=== PATIENT | male | born 1955 | race American Indian/Alaskan Native ===

== ENCOUNTER 2016-12-28 15:39 | Inpatient (IN) | payer MEDICARE ==
[2016-12-28] MEDS ORDERED: TORADOL IM ONE (17:10)
--- NOTE | 2016-12-28 17:10 | Emergency Department Report ---
- General Chief complaint: Skin/Abscess/Foreign Body Stated complaint: ABSCESS UPPER AND LOWER BACK Time Seen by Provider: 12/28/16 17:03 Source: patient Mode of arrival: Ambulatory Limitations: No Limitations - History of Present Illness Initial comments: Patient with Diabetes and HTN presents today with abscess to his right upper back 3 weeks. Note: patient seen here on 12/06/16 by another provider for same abscess. Positive for drainage. Reports drainage and pain radiating to his arm and left shoulder. Denies numbness, weakness, paresthesias, fever, chills, nausea, vomiting, chest pain, shortness of breath, abdominal pain. Patient reports hx of multiple abscesses, 1 to back for which he had to be admitted for many years ago. - Related Data Home Medications Medication Instructions Recorded Confirmed Last Taken ALBUTEROL Inhaler [ProAir HFA 2 puff IH QID PRN 07/12/15 07/14/15 07/14/15 Inhaler] AtorvaSTATin [Lipitor] 1 tab PO DAILY 07/12/15 07/14/15 10/24/16 Citalopram [Celexa] 20 mg PO QDAY 07/12/15 07/14/15 10/24/16 Fluticasone/Salmeterol [Advair 1 puff IH BID 07/12/15 07/14/15 07/13/15 Diskus 100-50 mcg] Gabapentin [Neurontin] 300 mg PO BID 07/12/15 10/25/16 10/24/16 Insulin Glargine,Hum.rec.anlog 40 units SQ QHS 07/12/15 07/14/15 10/24/16 [Lantus Solostar] Lisinopril [Zestril TAB] 20 mg PO QDAY 07/12/15 07/14/15 10/24/16 Piroxicam 1 cap PO DAILY 07/12/15 10/25/16 07/13/15 Zolpidem [Ambien] 10 mg PO QHS 07/12/15 07/14/15 10/24/16 glipiZIDE [Glucotrol] 5 mg PO QDAY 07/12/15 07/14/15 10/24/16 metFORMIN [Glucophage] 850 mg PO BID 07/12/15 07/14/15 10/24/16 Previous Rx's Medication Instructions Recorded Last Taken Type Ketoconazole (Nf) [Ketoconazole 120 ml TP 2XW #1 bottle 03/29/16 Unknown Rx Shampoo (Nf)] Prednisone [predniSONE 10 mg 10 mg PO .TAPER #1 tab.ds.pk 10/25/16 Unknown Rx (6-Day Pack, 21 Tabs)] diphenhydrAMINE [Benadryl CAP] 50 mg PO Q8HR PRN #15 capsule 10/25/16 Unknown Rx Acetaminophen/Codeine 1 tab PO Q6H PRN #14 tab 12/06/16 Unknown Rx [Acetaminophen-Codeine #3 TAB] Cephalexin [Keflex] 500 mg PO QID #20 capsule 12/06/16 Unknown Rx cefTRIAXone/NS 2 GM/100 ML 2 gm IV Q24HR #10 piggyback 01/01/17 Unknown Rx [Rocephin/Ns 2 gm/100 ml] Allergies Allergy/AdvReac Type Severity Reaction Status Date / Time haloperidol [From Haldol] AdvReac Anaphylaxis Verified 07/12/15 13:47 haloperidol lactate AdvReac Anaphylaxis Verified 07/12/15 13:47 [From Haldol] CATFISH AdvReac Swelling Uncoded 07/12/15 13:47 Abscess Boil HPI - HPI Chief Complaint: Skin/Abscess/Foreign Body Stated Complaint: ABSCESS UPPER AND LOWER BACK Time Seen by Provider: 12/28/16 17:03 Home Medications: Home Medications Medication Instructions Recorded Confirmed Last Taken ALBUTEROL Inhaler [ProAir HFA 2 puff IH QID PRN 07/12/15 07/14/15 07/14/15 Inhaler] AtorvaSTATin [Lipitor] 1 tab PO DAILY 07/12/15 07/14/15 10/24/16 Citalopram [Celexa] 20 mg PO QDAY 07/12/15 07/14/15 10/24/16 Fluticasone/Salmeterol [Advair 1 puff IH BID 07/12/15 07/14/15 07/13/15 Diskus 100-50 mcg] Gabapentin [Neurontin] 300 mg PO BID 07/12/15 10/25/16 10/24/16 Insulin Glargine,Hum.rec.anlog 40 units SQ QHS 07/12/15 07/14/15 10/24/16 [Lantus Solostar] Lisinopril [Zestril TAB] 20 mg PO QDAY 07/12/15 07/14/15 10/24/16 Piroxicam 1 cap PO DAILY 07/12/15 10/25/16 07/13/15 Zolpidem [Ambien] 10 mg PO QHS 07/12/15 07/14/15 10/24/16 glipiZIDE [Glucotrol] 5 mg PO QDAY 07/12/15 07/14/15 10/24/16 metFORMIN [Glucophage] 850 mg PO BID 07/12/15 07/14/15 10/24/16 Previous Rx's Medication Instructions Recorded Last Taken Type Ketoconazole (Nf) [Ketoconazole 120 ml TP 2XW #1 bottle 03/29/16 Unknown Rx Shampoo (Nf)] Prednisone [predniSONE 10 mg 10 mg PO .TAPER #1 tab.ds.pk 10/25/16 Unknown Rx (6-Day Pack, 21 Tabs)] diphenhydrAMINE [Benadryl CAP] 50 mg PO Q8HR PRN #15 capsule 10/25/16 Unknown Rx Acetaminophen/Codeine 1 tab PO Q6H PRN #14 tab 12/06/16 Unknown Rx [Acetaminophen-Codeine #3 TAB] Cephalexin [Keflex] 500 mg PO QID #20 capsule 12/06/16 Unknown Rx cefTRIAXone/NS 2 GM/100 ML 2 gm IV Q24HR #10 piggyback 01/01/17 Unknown Rx [Rocephin/Ns 2 gm/100 ml] Allergies/Adverse Reactions: Allergies Allergy/AdvReac Type Severity Reaction Status Date / Time haloperidol [From Haldol] AdvReac Anaphylaxis Verified 07/12/15 13:47 haloperidol lactate AdvReac Anaphylaxis Verified 07/12/15 13:47 [From Haldol] CATFISH AdvReac Swelling Uncoded 07/12/15 13:47 ED Review of Systems ROS: Stated complaint: ABSCESS UPPER AND LOWER BACK Other details as noted in HPI Comment: All other systems reviewed and negative ED Past Medical Hx - Past Medical History Previous Medical History?: Yes Hx Hypertension: Yes (40+YRS) Hx Diabetes: Yes (25 YRS) Hx Asthma: Yes (20 YOA) Additional medical history: Atopic Dermatitis, home oxygen - Surgical History Past Surgical History?: Yes Additional Surgical History: gastrobypass / removal of abscess / removal of adhesions - Social History Smoking Status: Never Smoker Substance Use Type: None - Medications Home Medications: Home Medications Medication Instructions Recorded Confirmed Last Taken Type ALBUTEROL Inhaler [ProAir HFA 2 puff IH QID PRN 07/12/15 07/14/15 07/14/15 History Inhaler] AtorvaSTATin [Lipitor] 1 tab PO DAILY 07/12/15 07/14/15 10/24/16 History Citalopram [Celexa] 20 mg PO QDAY 07/12/15 07/14/15 10/24/16 History Fluticasone/Salmeterol [Advair 1 puff IH BID 07/12/15 07/14/15 07/13/15 History Diskus 100-50 mcg] Gabapentin [Neurontin] 300 mg PO BID 07/12/15 10/25/16 10/24/16 History Insulin Glargine,Hum.rec.anlog 40 units SQ QHS 07/12/15 07/14/15 10/24/16 History [Lantus Solostar] Lisinopril [Zestril TAB] 20 mg PO QDAY 07/12/15 07/14/15 10/24/16 History Piroxicam 1 cap PO DAILY 07/12/15 10/25/16 07/13/15 History Zolpidem [Ambien] 10 mg PO QHS 07/12/15 07/14/15 10/24/16 History glipiZIDE [Glucotrol] 5 mg PO QDAY 07/12/15 07/14/15 10/24/16 History metFORMIN [Glucophage] 850 mg PO BID 07/12/15 07/14/15 10/24/16 History Ketoconazole (Nf) [Ketoconazole 120 ml TP 2XW #1 bottle 03/29/16 Unknown Rx Shampoo (Nf)] Prednisone [predniSONE 10 mg 10 mg PO .TAPER #1 tab.ds.pk 10/25/16 Unknown Rx (6-Day Pack, 21 Tabs)] diphenhydrAMINE [Benadryl CAP] 50 mg PO Q8HR PRN #15 capsule 10/25/16 Unknown Rx Acetaminophen/Codeine 1 tab PO Q6H PRN #14 tab 12/06/16 Unknown Rx [Acetaminophen-Codeine #3 TAB] Cephalexin [Keflex] 500 mg PO QID #20 capsule 12/06/16 Unknown Rx cefTRIAXone/NS 2 GM/100 ML 2 gm IV Q24HR #10 piggyback 01/01/17 Unknown Rx [Rocephin/Ns 2 gm/100 ml] ED Physical Exam - General Limitations: No Limitations General appearance: alert, in no apparent distress, obese (morbidly) - Head Head exam: Present: atraumatic, normocephalic - Eye Eye exam: Present: normal appearance, PERRL, EOMI - Neck Neck exam: Present: normal inspection, full ROM. Absent: tenderness, meningismus, lymphadenopathy - Respiratory Respiratory exam: Present: normal lung sounds bilaterally. Absent: respiratory distress - Cardiovascular Cardiovascular Exam: Present: regular rate, normal rhythm - Extremities Exam Extremities exam: Present: normal inspection, full ROM - Neurological Exam Neurological exam: Present: alert, oriented X3, normal gait - Psychiatric Psychiatric exam: Present: normal affect, normal mood - Skin Skin exam: Present: warm, rash (Upper back displays 1.5 cm draining from 0.5 opening. massive area of induration of surrounding tissue.) ED Course Vital Signs 12/28/16 12/28/16 12/28/16 15:47 22:17 22:20 Temperature 98 F 97.6 F Pulse Rate 102 H 94 H 91 H Pulse Rate [ Apical] Respiratory 18 18 17 Rate Blood Pressure 159/83 154/62 143/71 Blood Pressure [Right Arm] O2 Sat by Pulse 99 97 99 Oximetry 12/28/16 12/28/16 12/28/16 22:25 22:30 22:45 Temperature Pulse Rate 85 85 86 Pulse Rate [ Apical] Respiratory 18 17 17 Rate Blood Pressure 144/68 142/65 129/66 Blood Pressure [Right Arm] O2 Sat by Pulse 100 100 100 Oximetry 12/28/16 12/28/16 12/28/16 23:00 23:15 23:30 Temperature 97.6 F Pulse Rate 89 89 87 Pulse Rate [ Apical] Respiratory 16 15 16 Rate Blood Pressure 121/69 125/68 121/68 Blood Pressure [Right Arm] O2 Sat by Pulse 100 99 98 Oximetry 12/29/16 12/29/16 12/29/16 00:00 00:45 00:47 Temperature 98.2 F Pulse Rate 90 84 Pulse Rate [ Apical] Respiratory 18 20 Rate Blood Pressure 120/78 Blood Pressure [Right Arm] O2 Sat by Pulse 97 100 99 Oximetry 12/29/16 12/29/16 08:30 08:47 Temperature 98.6 F Pulse Rate Pulse Rate [ 84 Apical] Respiratory 16 20 Rate Blood Pressure Blood Pressure 143/79 [Right Arm] O2 Sat by Pulse Oximetry ED Medical Decision Making - Lab Data Result diagrams: 12/30/16 10:32 12/29/16 04:36 - Medical Decision Making Patient care signed over to Easton Love. Critical care attestation.: If time is entered above; I have spent that time in minutes in the direct care of this critically ill patient, excluding procedure time. ED Disposition Clinical Impression: Abscess of back, except buttock Disposition: DISCHARGED TO HOME OR SELFCARE Is pt being admited?: No Does the pt Need Aspirin: No Condition: Stable
[2016-12-28] MEDS ORDERED: CLEOCIN 900 MG/50 mL 900 MG/50 ML BAG IV ONE (17:52)
[2016-12-28 19:10] LABS: Basophils % (Auto) 0.5 % (0.0-1.8); Eosinophils % (Auto) 1.8 % (0.0-4.3); Hematocrit 35.4 % (35.5-45.6); Hemoglobin 11.4 gm/dl (11.8-15.2); Mean Corpuscular HGB Conc 32 % (32-34); Mean Corpuscular Hemoglobin 29 pg (28-32); Mean Corpuscular Volume 90 fl (84-94); Platelet Count 334 K/mm3 (140-440); Red Blood Count 3.91 M/mm3 (3.65-5.03); Red Cell Distribution Width 14.3 % (13.2-15.2); White Blood Count 15.7 K/mm3 (4.5-11.0)
[2016-12-28] MEDS ORDERED: VANCOMYCIN/NS 1 GM/250 ML 250 ML IV ONE (19:33)
[2016-12-28] MEDS ORDERED: ZOSYN/NS 4.5GM/100ML 4.5 GM/100 ML VIAL IV ONE (19:36)
[2016-12-28 19:39] LABS: Anion Gap 23 mmol/L; BUN/Creatinine Ratio 11.81; Blood Urea Nitrogen 13 mg/dL (9-20); Calcium 8.9 mg/dL (8.4-10.2); Carbon Dioxide 21 mmol/L (22-30); Chloride 91.6 mmol/L (98-107); Glucose 296 mg/dL (75-100); Potassium 4.2 mmol/L (3.6-5.0); Sodium 131 mmol/L (137-145)
[2016-12-28] MEDS ORDERED: NACL ONE (19:57)
[2016-12-28] MEDS ORDERED: VANCOMYCIN VIAL 2,000 MG in NACL 0.9% 500 ML 500 ML IV ONE (20:00)
[2016-12-28] MEDS ORDERED: NACL 0.9% 1000 ML 1,000 ML IV ONE (20:13)
[2016-12-28] MEDS ORDERED: XYLOCAINE MPF 2% ONE (20:33)
[2016-12-28] MEDS ORDERED: SUBLIMAZE ONE (20:33)
[2016-12-28] MEDS ORDERED: DIPRIVAN 10 MG/ML IV ONE (20:33)
[2016-12-28] MEDS ORDERED: QUELICIN ONE (20:37)
--- NOTE | 2016-12-28 20:58 | Emergency Department Report ---
Blank Doc - Documentation Documentation: A/P: Large upper back abscess 1-I discussed case with Dr. Khan who also examined patient. Given the size and location of the abscess we will do CT spine thoracic with contrast to rule out any bone involvement and to better characterize abscess 2-will empirically treat patient with vancomycin weight-based and Zosyn area patient had received 900 mg of IV clindamycin given by previous provider before case was signed out to me. 3-blood culture sent 4-case discussed with surgeon Dr. Austin directly with Dr. Khan, as per surgery consult patient to go to the operating room tonight for surgical I&D of large upper back abscess. 5-patient nothing by mouth. I informed patient of the clinical plan he understood the course of treatment and the need for surgical incision and drainage. Patient understands he will be admitted to the hospital for further management and observation.
[2016-12-28] MEDS ORDERED: NACL 0.9% 1000 ML 1,000 ML ONE (21:20)
--- NOTE | 2016-12-28 21:21 | Cat Scan Report ---
FINAL REPORT PROCEDURE: CT THORACIC SPINE W CON TECHNIQUE: Computerized axial tomography of the thoracic spine was performed following the IV injection of iodinated nonionic contrast. HISTORY: large abscess upper back COMPARISON: No prior studies are available for comparison. FINDINGS: At the level of C6 and C7, there is stranding in the subcutaneous tissues and patchy subcutaneous edema, predominantly to the right of midline involving the subcutaneous fat. The superior most extent is not included on this exam. No organized fluid collection is seen. At the level of T8 to the left of midline, there is subcutaneous edema and stranding, contiguous with the posterior skin surface. No circumscribed peripheral enhancement is seen to suggest organized fluid collection. Largest area of subcutaneous fluid density in this region measures approximately 1.4 centimeters AP x 2.7 centimeters transverse x 2.5 centimeters craniocaudal. Mild multilevel degenerative disc changes are seen throughout the thoracic spine. No acute fracture or subluxation is identified. 9 millimeter peripheral left lower lobe nodule. IMPRESSION: There is subcutaneous edema to the right of midline in the posterior subcutaneous tissues at the level of C6 and C7. The superior extent is not imaged. No organized abscess is seen this region. There is also a small amount of subcutaneous stranding and edema to the left of midline at the level of T8 as described above. No organized abscess is identified this region.
--- NOTE | 2016-12-28 21:25 | Anesthesia Day of Surgery ---
Anesthesia Day of Surgery - Day of Surgery Patient Examined: Yes Patient H&P Reviewed: Yes Patient is NPO: Yes
--- NOTE | 2016-12-28 21:25 | Anesthesia Consultation ---
Anesthesia Consult and Med Hx Date of service: 12/28/16 - Airway Anesthetic Teeth Evaluation: Poor ROM Head & Neck: Adequate Mental/Hyoid Distance: Adequate Mallampati Class: Class II Intubation Access Assessment: Probably Good - Pulmonary Exam CTA: Yes - Cardiac Exam Cardiac Exam: RRR - Pre-Operative Health Status ASA Pre-Surgery Classification: ASA3 Proposed Anesthetic Plan: General - Pulmonary Hx Smoking: No Hx Asthma: Yes (20 YOA) Hx Sleep Apnea: Yes - Cardiovascular System Hx Hypertension: Yes (40+YRS) - Central Nervous System Hx Psychiatric Problems: No - Gastrointestinal Hx Gastroesophageal Reflux Disease: Yes - Endocrine Hx Insulin Dependent Diabetes: Yes - Other Systems Hx Alcohol Use: No Hx Substance Use: Yes (RECOVERY crack/cocaine ADDICT 2 YRS 6 MONTHS) Hx Cancer: No Hx Obesity: Yes
[2016-12-28] MEDS ORDERED: DILAUDID ONE (21:50)
[2016-12-28] MEDS ORDERED: XYLOCAINE 1%/ EPI 1:100,000 INFILTRATI ONE (21:57)
[2016-12-28] MEDS ORDERED: MARCAINE 0.5% INFILTRATI ONE (21:57)
[2016-12-28 22:05] LABS: INR 1.2 (0.87-1.13)
--- NOTE | 2016-12-28 22:06 | History and Physical Report ---
ADMITTING DIAGNOSIS: Large upper back abscess. HISTORY OF PRESENT ILLNESS: The patient is a 61-year-old known diabetic male, who presents to the Emergency Room with a large back abscess. PAST MEDICAL HISTORY: Pertinent for asthma, diabetes, hypertension, and sleep apnea. The patient is on O2 at home. PAST SURGICAL HISTORY: Status post gastric bypass, multiple I and Ds of subcutaneous abscesses in the past including lower back and neck. ALLERGIES: Allergic to Haldol. MEDICATIONS: Include glipizide, metformin, Lantus, Ambien, lisinopril, and albuterol. FAMILY HISTORY: Negative. SOCIAL HISTORY: Denies any smoking or drinking. REVIEW OF SYSTEMS: Noncontributory. PHYSICAL EXAMINATION: GENERAL: At this time reveals the patient to be awake, alert, and cooperative, in no acute distress. VITAL SIGNS: Show him to be afebrile with a temperature of 98, blood pressure 159/83, pulse of 102, respirations of 18. HEENT: Pupils are equal and reactive to light and accommodation. Sclerae are nonicteric. NECK: No thyromegaly or adenopathy. Full range of motion. CHEST: Clear. LUNGS: Clear. HEART: Grossly normal sinus rhythm. No gross murmurs. ABDOMEN: Examination of the abdomen reveals it to be obese and soft. Examination of the upper back reveals an area of pinpoint drainage and surrounding induration with tenderness and slight erythema. EXTREMITIES: Show full range of motion. NEUROLOGIC: Grossly within normal limits. LABORATORY DATA: Lab work at present includes a CBC which shows a white count of 15.7, H and H is 11.4 and 35.4. Electrolytes show sodium 131, potassium 4.2, chloride 91, BUN is 13, creatinine is 1.1. Glucose is 296. IMPRESSION: At this time is that of a 61-year-old diabetic male with large back abscess. PLAN: To proceed with I and D of upper back abscess. Risks, indications, and complications have been reviewed with the patient who understands and has signed his consent. JOB# [id number] /NTS
[2016-12-28] MEDS ORDERED: DILAUDID IV PRN (22:13)
[2016-12-28] MEDS ORDERED: BENADRYL ONE (22:16)
[2016-12-28] MEDS ORDERED: ZOFRAN ONE (22:16)
--- NOTE | 2016-12-28 22:26 | Post Anesthesia Evaluation ---
- Post Anesthesia Evaluation Patient Participated: Yes Airway Patent: Yes Stable Respiratory Function: Yes Nausea/Vomiting: No Temp > 96.8F: Yes Pain Manageable: Yes Adequeate Hydration: Yes Anesthesia Complications: No Block Receding Appropriately: Not Applicable Patient on Ventilator: No
[2016-12-29] MEDS ORDERED: AMBIEN PO PRN (00:47)
--- NOTE | 2016-12-29 01:00 | Operative Report ---
PREOPERATIVE DIAGNOSIS: Upper back abscess. POSTOPERATIVE DIAGNOSIS: Upper back abscess. PROCEDURE: I and D of upper back abscess. SURGEON: Elpidio Raya MD ANESTHESIA: General. ESTIMATED BLOOD LOSS: Minimal. DRAINS: None. COMPLICATIONS: None. DESCRIPTION OF PROCEDURE: The patient was taken to the operating room and placed in prone position, prepped and draped in usual sterile fashion. A 15 blade was used to make an incision over the draining indurated mass in the upper back. A purulent drainage was obtained. Aerobic and anaerobic cultures were taken. Digital manipulation was used to break up all the micro loculations. The abscess cavity was irrigated with a 50% Betadine peroxide solution. Then, irrigated with saline. Once again checked for hemostasis and noted to be dry. The abscess cavity was then packed with 1 inch iodoform gauze. Fluff and pressure dressings applied. A 0.5% Marcaine was infiltrated over the area for postoperative pain relief. The patient tolerated the procedure well and left the OR in stable condition. JOB# [id number] ALEKSANDER/SOFIYA
[2016-12-29 05:13] LABS: Basophils % (Auto) 0.5 % (0.0-1.8); Eosinophils % (Auto) 2.1 % (0.0-4.3); Hematocrit 33.5 % (35.5-45.6); Hemoglobin 10.7 gm/dl (11.8-15.2); Mean Corpuscular HGB Conc 32 % (32-34); Mean Corpuscular Hemoglobin 29 pg (28-32); Mean Corpuscular Volume 92 fl (84-94); Red Blood Count 3.64 M/mm3 (3.65-5.03); Red Cell Distribution Width 14.6 % (13.2-15.2); White Blood Count 15.6 K/mm3 (4.5-11.0)
[2016-12-29 05:18] LABS: Platelet Count 271 K/mm3 (140-440)
[2016-12-29 05:34] LABS: Alanine Aminotransferase 71 units/L (7-56); Albumin 2.8 g/dL (3.9-5); Albumin/Globulin Ratio 0.7 %; Alkaline Phosphatase 79 units/L (35-129); Bilirubin,Total 0.8 mg/dL (0.1-1.2); Blood Urea Nitrogen 14 mg/dL (9-20); Calcium 8.4 mg/dL (8.4-10.2); Carbon Dioxide 19 mmol/L (22-30); Chloride 95.3 mmol/L (98-107); Glucose 296 mg/dL (75-100); Potassium 4.6 mmol/L (3.6-5.0); Sodium 131 mmol/L (137-145)
[2016-12-29 05:36] LABS: Anion Gap 21 mmol/L
--- NOTE | 2016-12-29 07:25 | Consultation ---
History of Present Illness - Reason for Consult Consult date: 12/29/16 Medical management Requesting physician: ELADIO MCCARTHY - History of Present Illness Had I/D of R back abscess as emergency last night. Asked to consult for medical management Past History Past Medical History: COPD, diabetes, hypertension, hyperlipidemia, other (CHELY) Medications and Allergies Allergies Allergy/AdvReac Type Severity Reaction Status Date / Time haloperidol [From Haldol] AdvReac Anaphylaxis Verified 07/12/15 13:47 haloperidol lactate AdvReac Anaphylaxis Verified 07/12/15 13:47 [From Haldol] CATFISH AdvReac Swelling Uncoded 07/12/15 13:47 Home Medications Medication Instructions Recorded Confirmed Last Taken Type ALBUTEROL Inhaler [ProAir HFA 2 puff IH QID PRN 07/12/15 07/14/15 07/14/15 History Inhaler] AtorvaSTATin [Lipitor] 1 tab PO DAILY 07/12/15 07/14/15 10/24/16 History Citalopram [celeXA] 20 mg PO QDAY 07/12/15 07/14/15 10/24/16 History Fluticasone/Salmeterol [Advair 1 puff IH BID 07/12/15 07/14/15 07/13/15 History Diskus 100-50 mcg] Gabapentin [Neurontin] 300 mg PO BID 07/12/15 10/25/16 10/24/16 History Insulin Glargine,Hum.rec.anlog 40 units SQ QHS 07/12/15 07/14/15 10/24/16 History [Lantus Solostar] Lisinopril [Zestril TAB] 20 mg PO QDAY 07/12/15 07/14/15 10/24/16 History Piroxicam [Piroxicam] 1 cap PO DAILY 07/12/15 10/25/16 07/13/15 History Zolpidem [Ambien] 10 mg PO QHS 07/12/15 07/14/15 10/24/16 History glipiZIDE [Glucotrol] 5 mg PO QDAY 07/12/15 07/14/15 10/24/16 History metFORMIN [Glucophage] 850 mg PO BID 07/12/15 07/14/15 10/24/16 History Ketoconazole (Nf) [Ketoconazole 120 ml TP 2XW #1 bottle 03/29/16 Unknown Rx Shampoo (Nf)] Cephalexin [Keflex] 500 mg PO Q12HR #14 cap 10/25/16 Unknown Rx Prednisone [predniSONE 10 mg 10 mg PO .TAPER #1 tab.ds.pk 10/25/16 Unknown Rx (6-Day Pack, 21 Tabs)] diphenhydrAMINE [Benadryl CAP] 50 mg PO Q8HR PRN #15 capsule 10/25/16 Unknown Rx Acetaminophen/Codeine [Tylenol #3] 1 tab PO Q6H PRN #14 tab 12/06/16 Unknown Rx Cephalexin [Keflex] 500 mg PO QID #20 capsule 12/06/16 Unknown Rx Sulfamethoxazole/Trimethoprim 1 each PO BID #10 tablet 12/06/16 Unknown Rx [Bactrim DS TAB] Active Meds: Active Medications Sodium Chloride (Nacl 0.45% 1000 Ml) 1,000 mls @ 75 mls/hr IV DIRECT KURT Piperacillin Sod/Tazobactam Sod (Zosyn/Ns 4.5gm/100ml) 4.5 gm in 100 mls @ 0 mls/hr IV Q8HR KURT PRN Reason: Protocol Stop: 01/03/17 05:59 Insulin Human Regular (Novolin R) 0 units SUB-Q ACHS KURT PRN Reason: Protocol Morphine Sulfate (Morphine) 2 mg IV Q3H PRN PRN Reason: Pain, Moderate (4-6) Oxycodone/Acetaminophen (Percocet 5/325) 1 tab PO Q4H PRN PRN Reason: Pain, Moderate (4-6) Zolpidem Tartrate (Ambien) 5 mg PO QHS PRN PRN Reason: Sleep Last Admin: 12/29/16 01:01 Dose: 5 mg Review of Systems All systems: negative Exam - Constitutional Vitals: Temp Pulse Resp BP Pulse Ox 98.2 F 84 20 120/78 99 12/29/16 00:00 12/29/16 00:47 12/29/16 00:47 12/29/16 00:00 12/29/16 00:47 General appearance: Present: no acute distress, well-nourished - EENT Eyes: Present: PERRL ENT: hearing intact, clear oral mucosa - Neck Neck: Present: supple, normal ROM - Respiratory Respiratory effort: normal Respiratory: bilateral: CTA - Cardiovascular Heart Sounds: Present: S1 & S2. Absent: rub, click - Extremities Extremities: pulses symmetrical, No edema Peripheral Pulses: within normal limits - Abdominal General gastrointestinal: Present: soft, non-tender, non-distended, normal bowel sounds Male genitourinary: Present: normal - Integumentary Integumentary: Present: clear, warm, dry - Musculoskeletal Musculoskeletal: gait normal, strength equal bilaterally - Psychiatric Psychiatric: appropriate mood/affect, intact judgment & insight - Neurologic Neurologic: CNII-XII intact, moves all extremities Results - Labs CBC & Chem 7: 12/29/16 04:36 12/29/16 04:36 Labs: Abnormal lab results 12/28/16 12/28/16 12/29/16 Range/Units 22:27 23:10 04:36 WBC 15.6 H (4.5-11.0) K/mm3 RBC 3.64 L (3.65-5.03) M/mm3 Hgb 10.7 L (11.8-15.2) gm/dl Hct 33.5 L (35.5-45.6) % Lymph % (Auto) 7.8 L (13.4-35.0) % [place] % (Auto) 15.3 H (0.0-7.3) % [place] # 2.4 H (0.0-0.8) K/mm3 Seg Neutrophils % 74.3 H (40.0-70.0) % Seg Neutrophils # 11.6 H (1.8-7.7) K/mm3 Sodium (137-145) mmol/L Chloride (98-107) mmol/L Carbon Dioxide (22-30) mmol/L Glucose (75-100) mg/dL POC Glucose 289 H 255 H (70-105) AST (5-40) units/L ALT (7-56) units/L Albumin (3.9-5) g/dL 12/29/16 Range/Units 04:36 WBC (4.5-11.0) K/mm3 RBC (3.65-5.03) M/mm3 Hgb (11.8-15.2) gm/dl Hct (35.5-45.6) % Lymph % (Auto) (13.4-35.0) % [place] % (Auto) (0.0-7.3) % [place] # (0.0-0.8) K/mm3 Seg Neutrophils % (40.0-70.0) % Seg Neutrophils # (1.8-7.7) K/mm3 Sodium 131 L (137-145) mmol/L Chloride 95.3 L (98-107) mmol/L Carbon Dioxide 19 L (22-30) mmol/L Glucose 296 H (75-100) mg/dL POC Glucose (70-105) AST 51 H (5-40) units/L ALT 71 H (7-56) units/L Albumin 2.8 L (3.9-5) g/dL Assessment and Plan - Patient Problems (1) Abscess of back, except buttock Current Visit: Yes Status: Acute Plan to address problem: I and D done last night emergently.Cont IV Zosyn and vancomycin.Will defer to ID for Abx selection (2) IDDM (insulin dependent diabetes mellitus) Current Visit: Yes Status: Chronic Plan to address problem: Will hold glipizide.No need for glipizide bcoz stefani is getting Lantus 40 units sq daily. (3) HTN (hypertension) Current Visit: Yes Status: Chronic Qualifiers: Hypertension type: essential hypertension Qualified Code(s): I10 - Essential (primary) hypertension Plan to address problem: Cont lisinopril and coreg (4) CHELY on CPAP Current Visit: Yes Status: Chronic Plan to address problem: cont CPAP (5) DVT prophylaxis Current Visit: Yes Status: Acute Plan to address problem: on lovenox
[2016-12-29] MEDS ORDERED: PROAIR IH PRN (08:38)
[2016-12-29] MEDS ORDERED: TYLENOL #3 PO PRN (08:38)
[2016-12-29] MEDS: MORPHINE IV PRN ×2 (08:47→13:36)
[2016-12-29] MEDS ORDERED: PROVENTIL IH PRN (09:26)
[2016-12-29] MEDS ORDERED: BACTRIM DS PO SCH (10:00)
[2016-12-29] MEDS ORDERED: PIROXICAM PO SCH (10:00)
[2016-12-29] MEDS ORDERED: VANCOMYCIN PHARMACY TO DOSE IV SCH (10:00)
[2016-12-29] MEDS ORDERED: NON-FORMULARY (Fluticasone/Salmeterol [Advair Diskus 100-50 Mcg] 1 PUFF) IH SCH (10:00)
[2016-12-29] MEDS: GLUCOPHAGE PO SCH ×3 (11:00→23:55)
[2016-12-29] MEDS: celeXA PO SCH (11:21)
[2016-12-29] MEDS: NEURONTIN PO SCH ×2 (11:21→20:59)
[2016-12-29] MEDS: ZESTRIL PO SCH (11:21)
[2016-12-29] MEDS: PULMICORT IH SCH (12:27)
[2016-12-29] MEDS: BROVANA NEBU IH SCH (12:27)
[2016-12-29] MEDS: VANCOMYCIN VIAL 1,500 MG in NACL 0.9% 500 ML 500 ML IV SCH ×2 (12:56→23:54)
[2016-12-29] MEDS: NACL 0.45% 1000 ML 1,000 ML IV SCH (13:37)
[2016-12-29] MEDS: ZOSYN/NS 4.5GM/100ML 4.5 GM/100 ML VIAL IV SCH ×2 (15:40→22:15)
--- NOTE | 2016-12-29 16:24 | Progress Note ---
Assessment and Plan POD # 1 Pt feeling well without compl. dressings dry surgically stable appreciate transfer to hospitalist service. BS control begin wd care in am antibiotics as per ID (intra-op cults taken) Selected Entries 12/29/16 12/29/16 12/29/16 11:19 11:21 12:38 Temperature 98.1 F Pulse Rate [ 88 Anterior Bilateral Throughout] Respiratory Rate Blood Pressure 142/81 12/29/16 14:06 Temperature Pulse Rate [ Anterior Bilateral Throughout] Respiratory 20 Rate Blood Pressure Laboratory Tests 12/29/16 12/29/16 04:36 15:58 WBC 15.6 H Hgb 10.7 L Hct 33.5 L POC Glucose 315 H Objective Vital Signs - 12hr 12/29/16 12/29/16 12/29/16 08:30 08:47 09:17 Temperature 98.6 F Pulse Rate Pulse Rate [ Anterior Bilateral Throughout] Pulse Rate [ 84 Apical] Respiratory 16 20 20 Rate Respiratory Rate [Anterior Bilateral Throughout] Respiratory Rate [Upper Back] Blood Pressure Blood Pressure 143/79 [Right Arm] 12/29/16 12/29/16 12/29/16 11:19 11:21 12:27 Temperature 98.1 F Pulse Rate 82 Pulse Rate [ 85 Anterior Bilateral Throughout] Pulse Rate [ 82 Apical] Respiratory 16 Rate Respiratory 18 Rate [Anterior Bilateral Throughout] Respiratory Rate [Upper Back] Blood Pressure 142/81 Blood Pressure 143/81 [Right Arm] 12/29/16 12/29/16 12/29/16 12:38 13:36 14:06 Temperature Pulse Rate Pulse Rate [ 88 Anterior Bilateral Throughout] Pulse Rate [ Apical] Respiratory 20 20 Rate Respiratory 18 Rate [Anterior Bilateral Throughout] Respiratory Rate [Upper Back] Blood Pressure Blood Pressure [Right Arm] 12/29/16 14:31 Temperature Pulse Rate Pulse Rate [ Anterior Bilateral Throughout] Pulse Rate [ Apical] Respiratory Rate Respiratory Rate [Anterior Bilateral Throughout] Respiratory 16 Rate [Upper Back] Blood Pressure Blood Pressure [Right Arm] - Labs 12/29/16 04:36 12/29/16 04:36 Diabetes panel 12/29/16 Range/Units 04:36 Sodium 131 L (137-145) mmol/L Potassium 4.6 (3.6-5.0) mmol/L Chloride 95.3 L (98-107) mmol/L Carbon Dioxide 19 L (22-30) mmol/L BUN 14 (9-20) mg/dL Creatinine 1.0 (0.8-1.5) mg/dL Glucose 296 H (75-100) mg/dL Calcium 8.4 (8.4-10.2) mg/dL AST 51 H (5-40) units/L ALT 71 H (7-56) units/L Alkaline Phosphatase 79 (35-129) units/L Total Protein 7.0 (6.3-8.2) g/dL Albumin 2.8 L (3.9-5) g/dL Calcium panel 12/29/16 Range/Units 04:36 Calcium 8.4 (8.4-10.2) mg/dL Albumin 2.8 L (3.9-5) g/dL Pituitary panel 12/29/16 Range/Units 04:36 Sodium 131 L (137-145) mmol/L Potassium 4.6 (3.6-5.0) mmol/L Chloride 95.3 L (98-107) mmol/L Carbon Dioxide 19 L (22-30) mmol/L BUN 14 (9-20) mg/dL Creatinine 1.0 (0.8-1.5) mg/dL Glucose 296 H (75-100) mg/dL Calcium 8.4 (8.4-10.2) mg/dL Adrenal panel 12/29/16 Range/Units 04:36 Sodium 131 L (137-145) mmol/L Potassium 4.6 (3.6-5.0) mmol/L Chloride 95.3 L (98-107) mmol/L Carbon Dioxide 19 L (22-30) mmol/L BUN 14 (9-20) mg/dL Creatinine 1.0 (0.8-1.5) mg/dL Glucose 296 H (75-100) mg/dL Calcium 8.4 (8.4-10.2) mg/dL Total Bilirubin 0.8 (0.1-1.2) mg/dL AST 51 H (5-40) units/L ALT 71 H (7-56) units/L Alkaline Phosphatase 79 (35-129) units/L Total Protein 7.0 (6.3-8.2) g/dL Albumin 2.8 L (3.9-5) g/dL
--- NOTE | 2016-12-29 18:27 | Consultation ---
History of Present Illness - Reason for Consult Consult date: 12/29/16 abscess Requesting physician: ELADIO RAYA - History of Present Illness This is a 61 year old man with diabetes mellitus, hypertension, Asthma, atopic dermatitis and Sleep apnea with CPAP at home. Patient informed me that he normal gets skin and soft tissue infections associated with his atopic dermatitis. One week prior to hospitalization he started to develop a pimple like lesion on his back that became large and painful. He said it started to drain purulent material. He said he has had multiple lesions on his skin before. In the ER he was found to have leukocytosis and underwent incision and drainage of the abscess. A ct scan of the back was performed revealed subcutaneous edema and stranding contiguous with the posterior skin surface, largest area of the subcutaneous fluid measures 1.4 x 2.7 x 2.5. He was initiated on vancomycin, zosyn and bactrim. Infectious disease consult was called to evaluate. Past History Past Medical History: COPD, diabetes, hypertension, hyperlipidemia, other (CHELY) Past Surgical History: Other (stomach stapling in 1986) Social history: . denies: smoking, alcohol abuse, IV drug use Family history: diabetes (mother), hypertension (mother and father) Medications and Allergies Allergies Allergy/AdvReac Type Severity Reaction Status Date / Time haloperidol [From Haldol] AdvReac Anaphylaxis Verified 07/12/15 13:47 haloperidol lactate AdvReac Anaphylaxis Verified 07/12/15 13:47 [From Haldol] CATFISH AdvReac Swelling Uncoded 07/12/15 13:47 Home Medications Medication Instructions Recorded Confirmed Last Taken Type ALBUTEROL Inhaler [ProAir HFA 2 puff IH QID PRN 07/12/15 07/14/15 07/14/15 History Inhaler] AtorvaSTATin [Lipitor] 1 tab PO DAILY 07/12/15 07/14/15 10/24/16 History Citalopram [celeXA] 20 mg PO QDAY 07/12/15 07/14/15 10/24/16 History Fluticasone/Salmeterol [Advair 1 puff IH BID 07/12/15 07/14/15 07/13/15 History Diskus 100-50 mcg] Gabapentin [Neurontin] 300 mg PO BID 07/12/15 10/25/16 10/24/16 History Insulin Glargine,Hum.rec.anlog 40 units SQ QHS 07/12/15 07/14/15 10/24/16 History [Lantus Solostar] Lisinopril [Zestril TAB] 20 mg PO QDAY 07/12/15 07/14/15 10/24/16 History Piroxicam [Piroxicam] 1 cap PO DAILY 07/12/15 10/25/16 07/13/15 History Zolpidem [Ambien] 10 mg PO QHS 07/12/15 07/14/15 10/24/16 History glipiZIDE [Glucotrol] 5 mg PO QDAY 07/12/15 07/14/15 10/24/16 History metFORMIN [Glucophage] 850 mg PO BID 07/12/15 07/14/15 10/24/16 History Ketoconazole (Nf) [Ketoconazole 120 ml TP 2XW #1 bottle 03/29/16 Unknown Rx Shampoo (Nf)] Cephalexin [Keflex] 500 mg PO Q12HR #14 cap 10/25/16 Unknown Rx Prednisone [predniSONE 10 mg 10 mg PO .TAPER #1 tab.ds.pk 10/25/16 Unknown Rx (6-Day Pack, 21 Tabs)] diphenhydrAMINE [Benadryl CAP] 50 mg PO Q8HR PRN #15 capsule 10/25/16 Unknown Rx Acetaminophen/Codeine [Tylenol #3] 1 tab PO Q6H PRN #14 tab 12/06/16 Unknown Rx Cephalexin [Keflex] 500 mg PO QID #20 capsule 12/06/16 Unknown Rx Sulfamethoxazole/Trimethoprim 1 each PO BID #10 tablet 12/06/16 Unknown Rx [Bactrim DS TAB] Active Meds: Active Medications Acetaminophen/Codeine Phosphate (Tylenol #3) 1 tab PO Q6H PRN PRN Reason: Pain Albuterol (Proventil) 2.5 mg IH Q4HRT PRN PRN Reason: Shortness Of Breath Arformoterol Tartrate (Brovana Nebu) 15 mcg IH Q12HRT [facility] Last Admin: 12/29/16 12:27 Dose: 15 mcg Atorvastatin Calcium (Lipitor) 10 mg PO DAILY [facility] Last Admin: 12/29/16 11:21 Dose: 10 mg Budesonide (Pulmicort) 0.5 mg IH Q12HRT [facility] Last Admin: 12/29/16 12:27 Dose: 0.5 mg Citalopram Hydrobromide (Celexa) 20 mg PO QDAY [facility] Last Admin: 12/29/16 11:21 Dose: 20 mg Gabapentin (Neurontin) 300 mg PO BID [facility] Last Admin: 12/29/16 11:21 Dose: 300 mg Sodium Chloride (Nacl 0.45% 1000 Ml) 1,000 mls @ 75 mls/hr IV DIRECT [facility] Last Admin: 12/29/16 13:37 Dose: 75 mls/hr Piperacillin Sod/Tazobactam Sod (Zosyn/Ns 4.5gm/100ml) 4.5 gm in 100 mls @ 0 mls/hr IV Q8HR [facility] PRN Reason: Protocol Stop: 01/03/17 05:59 Last Admin: 12/29/16 15:40 Dose: 100 mls/hr Vancomycin HCl 1,500 mg/ (Sodium Chloride) 500 mls @ 333.333 mls/hr IV Q12H [facility] Last Admin: 12/29/16 12:56 Dose: 333.333 mls/hr Insulin Detemir (Levemir) 40 units SUB-Q QHS [facility] Insulin Human Regular (Novolin R) 0 units SUB-Q ACHS [facility] PRN Reason: Protocol Last Admin: 12/29/16 16:29 Dose: 6 units Lisinopril (Zestril) 20 mg PO QDAY [facility] Last Admin: 12/29/16 11:21 Dose: 20 mg Metformin HCl (Glucophage) 850 mg PO BID [facility] Last Admin: 12/29/16 11:00 Dose: Not Given Miscellaneous Medication (Piroxicam [Piroxicam]) 1 cap PO DAILY [facility] Morphine Sulfate (Morphine) 2 mg IV Q3H PRN PRN Reason: Pain, Moderate (4-6) Last Admin: 12/29/16 13:36 Dose: 2 mg Oxycodone/Acetaminophen (Percocet 5/325) 1 tab PO Q4H PRN PRN Reason: Pain, Moderate (4-6) Trimethoprim/Sulfamethoxazole (Bactrim Ds) 1 each PO BID [facility] Last Admin: 12/29/16 11:21 Dose: 1 each Vancomycin HCl (Vancomycin Pharmacy To Dose) 1 each IV PKCONSULT [facility] PRN Reason: Protocol Zolpidem Tartrate (Ambien) 5 mg PO QHS PRN PRN Reason: Sleep Last Admin: 12/29/16 01:01 Dose: 5 mg Zolpidem Tartrate (Ambien) 10 mg PO QHS [facility] Review of Systems Constitutional: no weight loss, no weight gain, no fever, no chills, no weakness , no malaise Ears, nose, mouth and throat: no ear pain, no ear discharge, no tinnitis, no decreased hearing, no mouth pain Cardiovascular: no chest pain, no orthopnea, no lightheadedness, no shortness of breath, no dyspnea on exertion Respiratory: no cough, no cough with sputum, no excessive sputum, no congestion , no wheezing Gastrointestinal: no nausea, no vomiting, no diarrhea, no constipation, no melena, no hematochezia Genitourinary Male: no dysuria, no hematuria, no flank pain Musculoskeletal: other (upper back pain), no neck stiffness, no shooting arm pain Integumentary: boils, lesions, dryness, no rash Neurological: no transient paralysis, no paralysis, no weakness, no headaches, no migraines Psychiatric: no anxiety, no change in sleep habits, no disorientation Physical Examination - Constitutional Vitals: Selected Entries 12/29/16 12/29/16 11:19 16:30 Temperature 98.1 F 98.9 F Pulse Rate [ 86 Apical] Respiratory 20 Rate Blood Pressure 129/61 [Right Arm] Blood Pressure 83 Mean [Right Arm ] General appearance: Present: no acute distress, well-nourished - EENT Eyes: Present: PERRL, EOM intact. Absent: scleral icterus, conjunctival injection ENT: hearing intact, clear oral mucosa, poor dentition - Neck Neck: Present: supple, normal ROM. Absent: enlarged thyroid - Respiratory Respiratory effort: normal Respiratory: bilateral: CTA - Cardiovascular Rhythm: regular Heart Sounds: Present: S1 & S2 - Extremities Extremities: No edema - Abdominal General gastrointestinal: Present: soft, non-tender, normal bowel sounds Male genitourinary: Present: deferred - Rectal Rectal Exam: deferred - Integumentary Integumentary: Present: dry (scaly, dry skin, multiple areas of scabs) - Psychiatric Psychiatric: appropriate mood/affect, intact judgment & insight Results - Labs CBC & Chem 7: 12/29/16 04:36 12/29/16 04:36 Labs: Microbiology 12/28/16 21:43 Peripheral/Venous Blood Culture - Preliminary Culture in Progress 12/28/16 21:02 Peripheral/Venous Blood Culture - Preliminary Culture in Progress Laboratory Tests 12/28/16 12/29/16 12/29/16 21:02 04:36 04:36 WBC 15.6 H Plt Count 271 INR 1.20 H Chloride 95.3 L Carbon Dioxide 19 L Estimated GFR > 60 AST 51 H ALT 71 H Albumin 2.8 L Assessment and Plan Antibiotics: 1) vancomycin 1500mg iv Q12H (12/29 2) bactrim 1tab po Q12H (12/29 3) Zosyn 4.5gm iv Q8H(12/29 This is a pleasant 61 year old man with diabetes mellitus, hypertension, atopic dermatitis and sleep apnea. He has had multiple episodes of skin and soft tissue infection secondary to his skin condition that put him at risk for skin and soft tissue infection. He presented with worsening upper back abscess, s/p drainage by Dr. Raya. I suspect that this patient is colonized with Staph aureus and would not be surprised if this is MRSA. 1) Abscess of upper back in a patient with atopic dermatitis, this skin condition puts him at risk for recurrent skin and soft tissue infections. I suspect MRSA vs MSSA. 2) leukocytosis, secondary to abscess 3) atopic dermatitis, 4) Suspect MRSA colonization Plan 1) obtain Nares MRSA culture 2) will decolonize one nares culture is back 3) continue vancomycin 4) continue zosyn 5) discontinue bactrim 6) will follow up wound culture and deescalate antibiotics.
[2016-12-29] MEDS: AMBIEN PO SCH (21:00)
[2016-12-29] MEDS ORDERED: NON-FORMULARY (Insulin Glargine,Hum.Rec.Anlog [Lantus Solostar] 40 UNITS) SQ SCH (22:00)
[2016-12-29] MEDS: LEVEMIR SUB-Q SCH (23:56)
[2016-12-30] MEDS: ZOSYN/NS 4.5GM/100ML 4.5 GM/100 ML VIAL IV SCH ×2 (06:00→13:31)
[2016-12-30] MEDS: NEURONTIN PO SCH ×2 (09:20→21:52)
[2016-12-30] MEDS: ZESTRIL PO SCH (09:20)
[2016-12-30] MEDS: celeXA PO SCH (09:20)
[2016-12-30] MEDS: GLUCOPHAGE PO SCH ×2 (09:21→21:58)
[2016-12-30] MEDS: NACL 0.45% 1000 ML 1,000 ML IV SCH (09:22)
[2016-12-30] MEDS: PULMICORT IH SCH ×4 (09:56→20:19)
[2016-12-30] MEDS: BROVANA NEBU IH SCH ×4 (09:57→20:20)
[2016-12-30] MEDS: VANCOMYCIN VIAL 1,500 MG in NACL 0.9% 500 ML 500 ML IV SCH ×2 (10:52→22:30)
[2016-12-30 10:56] LABS: Basophils % (Auto) 0.8 % (0.0-1.8); Eosinophils % (Auto) 6.2 % (0.0-4.3); Hematocrit 31.1 % (35.5-45.6); Hemoglobin 10.2 gm/dl (11.8-15.2); Mean Corpuscular HGB Conc 33 % (32-34); Mean Corpuscular Hemoglobin 29 pg (28-32); Mean Corpuscular Volume 90 fl (84-94); Platelet Count 311 K/mm3 (140-440); Red Blood Count 3.47 M/mm3 (3.65-5.03); Red Cell Distribution Width 14.6 % (13.2-15.2)
--- NOTE | 2016-12-30 14:55 | Progress Note ---
Assessment and Plan Antibiotics: 1) vancomycin 1500mg iv Q12H (12/29 2) Zosyn 4.5gm iv Q8H(12/29 Previous Antibiotic bactrim 1tab po Q12H (12/29 This is a pleasant 61 year old man with diabetes mellitus, hypertension, atopic dermatitis and sleep apnea. He has had multiple episodes of skin and soft tissue infection secondary to his skin condition that put him at risk for skin and soft tissue infection. He presented with worsening upper back abscess, s/p drainage by Dr. Raya. I suspect that this patient is colonized with Staph aureus and would not be surprised if this is MRSA. 1) Abscess of upper back in a patient with atopic dermatitis, this skin condition puts him at risk for recurrent skin and soft tissue infections. I suspect MRSA vs MSSA. --culture with Staphylococcus aureus 2) leukocytosis, secondary to abscess -resolved 3) atopic dermatitis, 4) Suspect MRSA colonization -nares mrsa pending, Plan 1) follow up Nares MRSA culture 2) will decolonize one nares culture is back 3) continue vancomycin 4) discontinue zosyn 5) will follow up wound culture and deescalate antibiotics. Subjective Date of service: 12/30/16 Principal diagnosis: abscess Interval history: Patient is not happy that he has to be in the hospital for the football Objective - Constitutional Vitals: Selected Entries 12/30/16 12/30/16 12/30/16 09:20 09:57 12:00 Temperature 97.5 F L Pulse Rate 86 Pulse Rate [ 80 Right Brachial] Respiratory 16 Rate Respiratory 17 Rate [Bilateral Throughout] O2 Sat by Pulse 97 Oximetry Blood Pressure 151/81 [Right Arm] Blood Pressure 104 Mean [Right Arm ] General appearance: Present: no acute distress, well-nourished - EENT Eyes: PERRL, EOM intact, no scleral icterus, no conjunctival injection ENT: hearing intact, clear oral mucosa - Neck Neck: supple, normal ROM, no enlarged thyroid, no masses or JVD - Respiratory Respiratory effort: normal Respiratory: bilateral: CTA - Breasts Breasts: deferred - Cardiovascular Rhythm: regular Heart Sounds: Present: S1 & S2 Extremities: no ischemia, pulses intact - Gastrointestinal General gastrointestinal: Present: soft, non-tender, normal bowel sounds Rectal Exam: deferred - Genitourinary Male genitourinary: deferred - Integumentary Integumentary: clear, warm, dry, no jaundice, no rash - Psychiatric Psychiatric: appropriate mood/affect - Labs CBC & Chem 7: 12/30/16 10:32 12/29/16 04:36 Labs: Microbiology 12/29/16 21:08 Nares - Right MRSA Culture - Preliminary 12/28/16 Unknown Back Wound Culture - Preliminary Staphylococcus Aureus 12/28/16 Unknown Back Surgical Culture - Preliminary Staphylococcus Aureus Laboratory Tests 12/30/16 10:32 WBC 11.0
[2016-12-30] MEDS: PERCOCET 5/325 PO PRN (15:15)
--- NOTE | 2016-12-30 15:18 | Progress Note ---
Assessment and Plan - Patient Problems (1) Abscess of back, except buttock Current Visit: Yes Status: Acute Plan to address problem: S/P I&D as per per surgery, wound dressing in place. continue Abx. (2) HTN (hypertension) Current Visit: Yes Status: Chronic Qualifiers: Hypertension type: essential hypertension Qualified Code(s): I10 - Essential (primary) hypertension Plan to address problem: monitor bp q shift, continue current therapy. (3) IDDM (insulin dependent diabetes mellitus) Current Visit: Yes Status: Chronic Plan to address problem: ADA diet, insulin accu check, (4) CHELY on CPAP Current Visit: Yes Status: Chronic Plan to address problem: NIPPV qhs as clinically indicated (5) DVT prophylaxis Current Visit: Yes Status: Acute History Interval history: Pt resting in bed, No reported nursing events. Pt denies pain. Pt denies fever, chills, CP, Palpitations, NVD. Hospitalist Physical - Constitutional Vitals: Temp Pulse Resp BP Pulse Ox 97.5 F L 80 16 151/81 97 12/30/16 12:00 12/30/16 12:00 12/30/16 12:00 12/30/16 12:00 12/30/16 12:00 General appearance: Present: no acute distress, obese - EENT Eyes: Present: PERRL, EOM intact ENT: hearing intact - Neck Neck: Present: supple - Respiratory Respiratory: bilateral: CTA - Cardiovascular Rhythm: regular Heart Sounds: Present: S1 & S2 - Extremities Extremities: no ischemia Peripheral Pulses: within normal limits - Abdominal General gastrointestinal: soft, non-tender, non-distended, no hepatomegaly, no splenomegaly - Integumentary Integumentary: Present: clear, dry - Psychiatric Psychiatric: appropriate mood/affect, cooperative - Neurologic Neurologic: CNII-XII intact Results - Labs CBC & Chem 7: 12/30/16 10:32 12/29/16 04:36 Labs: Laboratory Last Values WBC 11.0 K/mm3 (4.5-11.0) 12/30/16 10:32 RBC 3.47 M/mm3 (3.65-5.03) L 12/30/16 10:32 Hgb 10.2 gm/dl (11.8-15.2) L 12/30/16 10:32 Hct 31.1 % (35.5-45.6) L 12/30/16 10:32 MCV 90 fl (84-94) 12/30/16 10:32 MCH 29 pg (28-32) 12/30/16 10:32 MCHC 33 % (32-34) 12/30/16 10:32 RDW 14.6 % (13.2-15.2) 12/30/16 10:32 Plt Count 311 K/mm3 (140-440) 12/30/16 10:32 Lymph % (Auto) 11.2 % (13.4-35.0) L 12/30/16 10:32 Heard % (Auto) 11.2 % (0.0-7.3) H 12/30/16 10:32 Eos % (Auto) 6.2 % (0.0-4.3) H 12/30/16 10:32 Baso % (Auto) 0.8 % (0.0-1.8) 12/30/16 10:32 Lymph # 1.2 K/mm3 (1.2-5.4) 12/30/16 10:32 Heard # 1.2 K/mm3 (0.0-0.8) H 12/30/16 10:32 Eos # 0.7 K/mm3 (0.0-0.4) H 12/30/16 10:32 Baso # 0.1 K/mm3 (0.0-0.1) 12/30/16 10:32 Seg Neutrophils % 70.6 % (40.0-70.0) H 12/30/16 10:32 Seg Neutrophils # 7.8 K/mm3 (1.8-7.7) H 12/30/16 10:32 ESR 91 mm/Hr (0-20) 12/28/16 19:38 PT 15.1 Sec. (12.2-14.9) H 12/28/16 21:02 INR 1.20 (0.87-1.13) H 12/28/16 21:02 Sodium 131 mmol/L (137-145) L 12/29/16 04:36 Potassium 4.6 mmol/L (3.6-5.0) 12/29/16 04:36 Chloride 95.3 mmol/L (98-107) L 12/29/16 04:36 Carbon Dioxide 19 mmol/L (22-30) L 12/29/16 04:36 Anion Gap 21 mmol/L 12/29/16 04:36 BUN 14 mg/dL (9-20) 12/29/16 04:36 Creatinine 1.0 mg/dL (0.8-1.5) 12/29/16 04:36 Estimated GFR > 60 ml/min 12/29/16 04:36 BUN/Creatinine Ratio 14.00 % 12/29/16 04:36 Glucose 296 mg/dL (75-100) H 12/29/16 04:36 POC Glucose 254 (70-105) H 12/30/16 11:39 Lactic Acid 1.9 mmol/L (0.7-2.0) 12/29/16 13:32 Calcium 8.4 mg/dL (8.4-10.2) 12/29/16 04:36 Total Bilirubin 0.8 mg/dL (0.1-1.2) 12/29/16 04:36 AST 51 units/L (5-40) H 12/29/16 04:36 ALT 71 units/L (7-56) H 12/29/16 04:36 Alkaline Phosphatase 79 units/L (35-129) 12/29/16 04:36 C-Reactive Protein 29.90 mg/dL (0.00-1.30) H 12/28/16 19:38 Total Protein 7.0 g/dL (6.3-8.2) 12/29/16 04:36 Albumin 2.8 g/dL (3.9-5) L 12/29/16 04:36 Albumin/Globulin Ratio 0.7 % 12/29/16 04:36 Blood Type A POSITIVE 12/28/16 20:45 Antibody Screen Negative 12/28/16 20:45
--- NOTE | 2016-12-30 20:34 | Admit Criteria Form ---
Admission Criteria Documentation: AMBULATORY SURGERY EXCEPTION CRITERIA Ambulatory Surgery Exception Criteria ( Place 'X' for any and all applicable criteria): Surgery or procedure performed on ambulatory basis may require inpatient stay for[A] ANY ONE of the following(1)(2)(3)(4)(5)(6)(7)(8)(9): [X] I. A preoperative situation, condition, or finding that warrants inpatient stay as indicated by ANY ONE of the following: [] a) Inpatient care needed because of severity of a disease or condition rather than the surgery (eg, severe cardiac or respiratory disease, severe infection) (15) (16 ) (17) (18) [] b) Emergent procedure (eg, angioplasty for acute ischemia)(19) [] c) Complex surgical approach or situation as indicated by ANY ONE of the following(3): [] i) Open approach needed instead of usual endoscopic, transcatheter, or other less invasive procedure [] ii) Difficult approach because of previous operation [] iii) Airway monitoring required after open neck procedures(20)(21) [] iv) Large mass requiring unusually extensive dissection [] v) Additional complicating feature requiring inpatient care (eg, drain management)(22(23): [X] d) Major surgery in a pt with high anesthetic risk as indicated by ANY ONE of the following (2)(3)(5)(7)(8): [X] i) ASA risk class III or higher (severe systemic disease impairing function) [D] [] ii) Advanced age (eg, older than 85 years)(14)(24) [] iii) Symptomatic heart failure(25) [] iv) Symptomatic asthma or COPD(8)(21) [] v) Morbid obesity with hemodynamic or respiratory problems(20)( 21)(26)(27) [] vi) Obstructive sleep apnea(20)(21) [] vii) Former premature infants who are younger than 60 weeks [] viii) High risk for severe postoperative abnormalities (eg, severe postoperative hypocalcemia after parathyroidectomy for severe hyperparathyroidism)(27)( 28) [] ix) Unstable angina(25) [] e) Drug-related risk requiring inpatient stay as indicated by ANY ONE of the following(5)(10)(14)(32)(33) [] i) Procedure requires discontinuing drugs or other therapy (eg , antiarrhythmic medication, antiseizure medication), which necessitates inpatient observation or treatment.(18)(31) [] ii) Major surgery and high risk drug use as indicated by ANY ONE of the following: [] 1) Active abuse of cocaine or similar drug [] 2) Monoamine oxidase inhibitor use [] 3) Other drug identified as posing risk [] f) Inadequate outpatient care situation as indicated by ANY ONE of the following(5)(10)(14)(32)(33) [] i) Patient lives remote from medical facility and procedure has urgent complication potential, and temporary nearby residence cannot be arranged [] ii) Patient will have postprocedure incapacitation and inadequate assistance at home, or alternative level of care cannot be arranged. [] iii) Patient will have long general anesthesia or procedure side effect resolution time, and competent person to stay with patient on first postoperative night at home or alternative level of care cannot be arranged. []iv) Other inadequate outpatient situation that cannot be handled by other means [] II. A perioperative event, condition, or finding that warrants inpatient stay as indicated by ANY ONE of the following (1)(2)(3): [] a) Inadequate physiologic recovery: cardiovascular, respiratory, or hemodynamic status not normal or near preoperative baseline(18) [] b) Hemodynamic instability [] c) Patient not alert with near normal or baseline mental status [] d) Temperature not normal or as expected and not appropriate for outpatient treatment of condition [] e) Ambulatory or appropriate activity level status not yet achieved post procedure [E](34)(35)(36) [] f) Operative site not appropriate (eg, unexpected or excessive drainage or bleeding) [] g) Postoperative effects not resolved or adequately managed (eg, significant pain or vomiting not appropriate for outpatient or next level of care)(10)(12) [] h) Complicating features requiring inpatient care as indicated by ANY ONE of the following(37): [] i) Severe complications of procedure (eg, bowel injury, airway compromise, vascular injury,severe hemorrhage) [] ii) Extensive (eg, dissection far beyond usual scope of procedure ) or prolonged (eg, 120 minutes beyond usual) surgery needed requiring inpatient postoperative care [] iii) Conversion to an open or complex procedure that requires inpatient care (eg, open vs laparoscopic cholecystectomy, abdominal vs vaginal hysterectomy)(38) [] iv) Comorbid condition or test result identified during or post procedure that requires inpatient care (7) [] v) Malignant hyperthermia(30) [] vi) Other complicating feature requiring inpatient care(22)(23) Inpatient stay may be needed until ALL of the following are present (1)(2)(3)(4) (5)(6)(10)(14)(33)(40): []a) Physiologic recovery: cardiovascular, respiratory, and hemodynamic status normal or near preoperative baseline []b) Hemodynamic stability []c) Patient alert, with near normal or baseline mental status []d) Temperature appropriate: patient afebrile or temperature appropriate for outpt treatment of condition []e) Activity level appropriate: ambulatory or appropriate activity level post procedure []f) Operative site appropriate as indicated by ALL of the following: []i) Site dry or with expected drainage []ii) Any blood noted is as expected for procedure. []g) Postoperative effects resolved or managed as indicated by ALL of the following: []i) Pain management appropriate for outpatient (or next level of) care(10) []ii) Minimal nausea and vomiting: if present, successfully treated with oral medication(12) []iii) Headache, dizziness, or drowsiness (if present) are mild. []h) Voiding status acceptable as indicated by ANY ONE of the following: []i) Voiding spontaneously []ii) No voiding but instructions given for follow-up in 6 to 8 hours []iii) Urinary catheter in place, and instructions given for follow-up []i) Complicating features requiring inpatient care manageable at a lower level of care(37) []j) Comorbid conditions manageable at a lower level of care(37) The original [employer] content created by [employer] has been revised. The portions of the content which have been revised are identified through the use of italic text or in bold, and [facility] [employer] has neither reviewed nor approved the modified material. All other unmodified content is copyright [employer]. Please see references footnoted in the original [employer] edition 2016 Admission Criteria Met: Yes
[2016-12-30] MEDS: AMBIEN PO SCH (21:53)
[2016-12-30] MEDS: LEVEMIR SUB-Q SCH (22:29)
[2016-12-31] MEDS: PERCOCET 5/325 PO PRN ×3 (06:16→22:47)
[2016-12-31] MEDS: PULMICORT IH SCH ×2 (07:18→21:18)
[2016-12-31] MEDS: BROVANA NEBU IH SCH ×2 (07:18→21:17)
[2016-12-31] MEDS: celeXA PO SCH ×2 (08:22→10:00)
[2016-12-31] MEDS: NEURONTIN PO SCH ×3 (08:23→22:48)
[2016-12-31] MEDS: GLUCOPHAGE PO SCH ×3 (08:23→22:47)
[2016-12-31] MEDS: ZESTRIL PO SCH ×2 (08:23→10:00)
--- NOTE | 2016-12-31 08:58 | Progress Note ---
Assessment and Plan Antibiotics: 1) vancomycin 1500mg iv Q12H (12/29 Previous Antibiotic bactrim 1tab po Q12H (12/29 Zosyn 4.5gm iv Q8H(12/29-12/30 This is a pleasant 61 year old man with diabetes mellitus, hypertension, atopic dermatitis and sleep apnea. He has had multiple episodes of skin and soft tissue infection secondary to his skin condition that put him at risk for skin and soft tissue infection. He presented with worsening upper back abscess, s/p drainage by Dr. Raya. I suspect that this patient is colonized with Staph aureus and would not be surprised if this is MRSA. 1) Abscess of upper back in a patient with atopic dermatitis, this skin condition puts him at risk for recurrent skin and soft tissue infections. I suspect MRSA vs MSSA. --culture with Staphylococcus aureus, awaiting sensitivities to determine antibiotics 2) leukocytosis, secondary to abscess -resolved 3) atopic dermatitis, severe scaly dry skin. 4) Suspect MRSA colonization -nares mrsa pending, Plan 1) follow up Nares MRSA culture 2) will decolonize one nares culture is back 3) continue vancomycin, await sensitivities 4) I believe patient might benefit from iv antibiotics on discharge 5) will follow up wound culture and deescalate antibiotics. 6) picc line placement Subjective Date of service: 12/31/16 Principal diagnosis: abscess Interval history: Patient is looking forward to going home Objective - Constitutional Vitals: Selected Entries 12/31/16 12/31/16 12/31/16 07:30 08:09 08:23 Temperature 97.7 F Pulse Rate 75 O2 Sat by Pulse 100 Oximetry Blood Pressure 168/88 Blood Pressure 114 Mean General appearance: Present: no acute distress, well-nourished - EENT Eyes: PERRL, EOM intact, no scleral icterus, no conjunctival injection ENT: hearing intact, poor dentition Ears: bilateral: normal - Neck Neck: supple, normal ROM, no enlarged thyroid - Respiratory Respiratory: bilateral: CTA - Breasts Breasts: deferred - Cardiovascular Rhythm: regular Heart Sounds: Present: S1 & S2 Extremities: no ischemia, No edema - Gastrointestinal General gastrointestinal: Present: soft, non-tender, normal bowel sounds Rectal Exam: deferred - Genitourinary Male genitourinary: deferred - Integumentary Integumentary: clear, warm, dry - Musculoskeletal Musculoskeletal: strength equal bilaterally - Psychiatric Psychiatric: appropriate mood/affect, cooperative - Additional findings Additional findings: upper thoracic area with packed wound, above the wound is indurated and tender - Labs CBC & Chem 7: 12/30/16 10:32 12/29/16 04:36 Labs: Microbiology 12/29/16 21:08 Nares - Right MRSA Culture - Preliminary 12/28/16 Unknown Back Wound Culture - Preliminary Staphylococcus Aureus 12/28/16 Unknown Back Surgical Culture - Preliminary Staphylococcus Aureus 12/28/16 Unknown Back Anaerobic Culture - Preliminary Laboratory Tests 12/28/16 12/29/16 12/30/16 18:15 04:36 10:32 WBC 11.0 Plt Count 311 Creatinine 1.1 1.0
--- NOTE | 2016-12-31 11:55 | XRay Report ---
AP CHEST HISTORY: Left arm PICC placement. FINDINGS: No comparison. A left arm PICC has been inserted which terminates at the cavoatrial junction. The lungs are clear. There is mild cardiomegaly with normal pulmonary vascularity. The thoracic cage is intact. IMPRESSION: Adequate placement of a left arm PICC. Mild cardiomegaly.
--- NOTE | 2016-12-31 12:44 | Progress Note ---
Assessment and Plan Pt feeling well without compl Dressing changed as per ET nurse surgically stable ID shanna appreciated. may d/c from surg perspective when cleared by ID & Hospitalist [facility] for local care rto Fri Selected Entries 12/31/16 12/31/16 12/31/16 07:30 07:33 08:23 Temperature 97.7 F Pulse Rate [ 68 Bilateral Throughout] Blood Pressure 168/88 Laboratory Tests 12/30/16 12/31/16 10:32 08:04 WBC 11.0 Hgb 10.2 L Hct 31.1 L POC Glucose 203 H Objective Vital Signs - 12hr 12/31/16 12/31/16 12/31/16 07:19 07:30 07:33 Temperature 97.7 F Pulse Rate Pulse Rate [ 72 68 Bilateral Throughout] Pulse Rate [ 75 Right Brachial] Respiratory 18 Rate Respiratory 18 18 Rate [Bilateral Throughout] Blood Pressure Blood Pressure 166/88 [Right Arm] O2 Sat by Pulse 100 Oximetry 12/31/16 12/31/16 08:09 08:23 Temperature Pulse Rate 75 Pulse Rate [ Bilateral Throughout] Pulse Rate [ Right Brachial] Respiratory Rate Respiratory Rate [Bilateral Throughout] Blood Pressure 168/88 Blood Pressure [Right Arm] O2 Sat by Pulse 100 Oximetry - Labs 12/30/16 10:32 12/29/16 04:36
[2016-12-31] MEDS: VANCOMYCIN VIAL 1,500 MG in NACL 0.9% 500 ML 500 ML IV SCH (12:46)
--- NOTE | 2016-12-31 16:46 | Progress Note ---
Assessment and Plan - Patient Problems (1) Abscess of back, except buttock Current Visit: Yes Status: Acute Plan to address problem: S/P I&D as per per surgery, wound dressing in place. continue Abx. ID consulted , awaiting would cultures to D/C home with IC abx a per ID service. (2) HTN (hypertension) Current Visit: Yes Status: Chronic Qualifiers: Hypertension type: essential hypertension Qualified Code(s): I10 - Essential (primary) hypertension Plan to address problem: monitor bp q shift, continue current therapy. (3) IDDM (insulin dependent diabetes mellitus) Current Visit: Yes Status: Chronic Plan to address problem: ADA diet, insulin accu check, (4) CHELY on CPAP Current Visit: Yes Status: Chronic Plan to address problem: NIPPV qhs as clinically indicated (5) DVT prophylaxis Current Visit: Yes Status: Acute History Interval history: Pt resting in bed, No reported nursing events. Pt denies pain. Pt denies fever, chills, CP, Palpitations, NVD. Pt S/P PICC Line placement. D/C home with IV abx pending culture sensitivities. Hospitalist Physical - Constitutional Vitals: Temp Pulse Resp BP Pulse Ox 98.0 F 82 18 167/78 100 12/31/16 14:57 12/31/16 14:57 12/31/16 14:57 12/31/16 14:57 12/31/16 14:57 General appearance: Present: no acute distress, obese - EENT Eyes: Present: PERRL, EOM intact - Neck Neck: Present: supple - Respiratory Respiratory: bilateral: diminished - Cardiovascular Rhythm: regular Heart Sounds: Present: S1 & S2 - Extremities Extremities: no ischemia Peripheral Pulses: within normal limits - Abdominal General gastrointestinal: soft, non-tender, non-distended - Integumentary Integumentary: Present: clear, dry - Psychiatric Psychiatric: appropriate mood/affect, cooperative - Neurologic Neurologic: CNII-XII intact Results - Labs CBC & Chem 7: 12/30/16 10:32 12/29/16 04:36 Labs: Laboratory Last Values WBC 11.0 K/mm3 (4.5-11.0) 12/30/16 10:32 RBC 3.47 M/mm3 (3.65-5.03) L 12/30/16 10:32 Hgb 10.2 gm/dl (11.8-15.2) L 12/30/16 10:32 Hct 31.1 % (35.5-45.6) L 12/30/16 10:32 MCV 90 fl (84-94) 12/30/16 10:32 MCH 29 pg (28-32) 12/30/16 10:32 MCHC 33 % (32-34) 12/30/16 10:32 RDW 14.6 % (13.2-15.2) 12/30/16 10:32 Plt Count 311 K/mm3 (140-440) 12/30/16 10:32 Lymph % (Auto) 11.2 % (13.4-35.0) L 12/30/16 10:32 Towns % (Auto) 11.2 % (0.0-7.3) H 12/30/16 10:32 Eos % (Auto) 6.2 % (0.0-4.3) H 12/30/16 10:32 Baso % (Auto) 0.8 % (0.0-1.8) 12/30/16 10:32 Lymph # 1.2 K/mm3 (1.2-5.4) 12/30/16 10:32 Towns # 1.2 K/mm3 (0.0-0.8) H 12/30/16 10:32 Eos # 0.7 K/mm3 (0.0-0.4) H 12/30/16 10:32 Baso # 0.1 K/mm3 (0.0-0.1) 12/30/16 10:32 Seg Neutrophils % 70.6 % (40.0-70.0) H 12/30/16 10:32 Seg Neutrophils # 7.8 K/mm3 (1.8-7.7) H 12/30/16 10:32 ESR 91 mm/Hr (0-20) 12/28/16 19:38 PT 15.1 Sec. (12.2-14.9) H 12/28/16 21:02 INR 1.20 (0.87-1.13) H 12/28/16 21:02 Sodium 131 mmol/L (137-145) L 12/29/16 04:36 Potassium 4.6 mmol/L (3.6-5.0) 12/29/16 04:36 Chloride 95.3 mmol/L (98-107) L 12/29/16 04:36 Carbon Dioxide 19 mmol/L (22-30) L 12/29/16 04:36 Anion Gap 21 mmol/L 12/29/16 04:36 BUN 14 mg/dL (9-20) 12/29/16 04:36 Creatinine 1.0 mg/dL (0.8-1.5) 12/29/16 04:36 Estimated GFR > 60 ml/min 12/29/16 04:36 BUN/Creatinine Ratio 14.00 % 12/29/16 04:36 Glucose 296 mg/dL (75-100) H 12/29/16 04:36 POC Glucose 203 (70-105) H 12/31/16 08:04 Lactic Acid 1.9 mmol/L (0.7-2.0) 12/29/16 13:32 Calcium 8.4 mg/dL (8.4-10.2) 12/29/16 04:36 Total Bilirubin 0.8 mg/dL (0.1-1.2) 12/29/16 04:36 AST 51 units/L (5-40) H 12/29/16 04:36 ALT 71 units/L (7-56) H 12/29/16 04:36 Alkaline Phosphatase 79 units/L (35-129) 12/29/16 04:36 C-Reactive Protein 29.90 mg/dL (0.00-1.30) H 12/28/16 19:38 Total Protein 7.0 g/dL (6.3-8.2) 12/29/16 04:36 Albumin 2.8 g/dL (3.9-5) L 12/29/16 04:36 Albumin/Globulin Ratio 0.7 % 12/29/16 04:36 Blood Type A POSITIVE 12/28/16 20:45 Antibody Screen Negative 12/28/16 20:45
[2016-12-31] MEDS: AMBIEN PO SCH (22:47)
[2016-12-31] MEDS: LEVEMIR SUB-Q SCH (22:55)
[2017-01-01] MEDS: MORPHINE IV PRN (00:45)
[2017-01-01] MEDS: VANCOMYCIN VIAL 1,500 MG in NACL 0.9% 500 ML 500 ML IV SCH (01:00)
[2017-01-01] MEDS: PULMICORT IH SCH ×2 (07:55→19:49)
[2017-01-01] MEDS: BROVANA NEBU IH SCH ×2 (07:55→19:50)
--- NOTE | 2017-01-01 08:46 | Progress Note ---
Assessment and Plan Antibiotics: 1) vancomycin 1500mg iv Q12H (12/29 Previous Antibiotic bactrim 1tab po Q12H (12/29 Zosyn 4.5gm iv Q8H(12/29-12/30 This is a pleasant 61 year old man with diabetes mellitus, hypertension, atopic dermatitis and sleep apnea. He has had multiple episodes of skin and soft tissue infection secondary to his skin condition that put him at risk for skin and soft tissue infection. He presented with worsening upper back abscess, s/p drainage by Dr. Raya. I suspect that this patient is colonized with Staph aureus and would not be surprised if this is MRSA. he is at risk for recurrent skin and soft tissue infection with his ongoing skin condition 1) Abscess of upper back in a patient with atopic dermatitis, this skin condition puts him at risk for recurrent skin and soft tissue infections. I suspect MRSA vs MSSA. --culture with Staphylococcus aureus, sensitive to oxacillin, vancomycin is not needed here. -- will switch to ceftriaxone to complete additional 10 days. --patient will need wound care services 2) leukocytosis, secondary to abscess -resolved 3) atopic dermatitis, severe scaly dry skin. 4) Suspect MRSA colonization -nares mrsa negative, patient is not colonized at that site Plan 1) discontinue vancomycin 2) start ceftriaxone 2 gm iv Q24H, first dose today in the hospital before going home 3) patient wants to get antibiotics at home, discussed getting antibiotics in the office as well 4) Patient will need to follow up with surgery and infectious disease in the next 2 weeks Subjective Date of service: 01/01/17 Principal diagnosis: abscess Interval history: Patient is requesting to go home, he has no new complaints Objective - Constitutional Vitals: Selected Entries 01/01/17 01/01/17 07:10 07:56 Temperature 98.0 F Pulse Rate [ 74 Bilateral Throughout] Respiratory 20 Rate [Bilateral Throughout] Blood Pressure 146/75 [Right Arm] Blood Pressure 98 Mean [Right Arm ] General appearance: Present: no acute distress, well-nourished - EENT Eyes: PERRL, EOM intact, no scleral icterus, no conjunctival injection Ears: bilateral: normal - Neck Neck: supple, normal ROM, no enlarged thyroid, no masses or JVD - Respiratory Respiratory: bilateral: CTA - Breasts Breasts: deferred - Cardiovascular Rhythm: regular Extremities: no ischemia - Gastrointestinal General gastrointestinal: Present: deferred, soft Rectal Exam: deferred - Genitourinary Male genitourinary: deferred - Integumentary Integumentary: clear, warm, dry - Musculoskeletal Musculoskeletal: strength equal bilaterally - Psychiatric Psychiatric: appropriate mood/affect, intact judgment & insight, cooperative - Labs CBC & Chem 7: 12/30/16 10:32 12/29/16 04:36 Labs: Laboratory Tests 12/28/16 12/30/16 21:02 10:32 WBC 11.0 Plt Count 311 INR 1.20 H Abnormal lab results 12/31/16 12/31/16 Range/Units 16:39 22:21 POC Glucose 255 H 292 H (70-105) Microbiology 12/28/16 Unknown Back Surgical Culture - Final Staphylococcus Aureus
--- NOTE | 2017-01-01 09:00 | Query-Infection ---
Dear _Cristina_RADHA Date:__01/01/2017 Record Librarian/CDS:_Nahomy Mukherjee Phone#: Exercise your independent professional judgment when responding to this query. Questions asked do not imply a particular answer is desired or expected. We greatly appreciate your clarification on this issue. Clinical Documentation States: The patient is a [id number] Male who was admitted due to Abscess of Upper Back. "Leukocytosis, secondary to abscess" (Dr. GARCIA,MILTON M in [place] on 12/31/2016). Antibiotics: 1) vancomycin 1500mg iv Q12H 2) Zosyn 4.5gm iv Q8H WBC 15.7 K/mm3 Glucose 296 gm/dl Pulse 102 Respiratory Rate 20 Clinical findings show: (please check applicable parameters) Infection, known /suspected, with some of the following indicators; Specify the infection: 3 General parameters [ ] Fever (core temp >38.30C or 100.40F) [ ] Hypothermia (core temp <36C) [ ] Heart rate >90 bpm [ ] Tachypnea: >20 bpm or pCO2 < 32 mmHg [ ] Altered mental status [ ] Significant edema / +ve fluid balance (>20 ml/kg 24 h) [ ] Hyperglycemia (Bl. glucose >110 mg/dl) w/o diabetes Inflammatory parameters [ ] Leukocytosis (white blood cell count >12,000/l) [ ] Leukopenia (white blood cell count <4,000/l) [ ] Bandemia (immature WBC > 10%) [ ] Leucocyte Left Shift [ ] Plasma procalcitonin>2 SD above the normal value Hemodynamic and tissue perfusion parameters [ ] Arterial hypotension(SBP <90 mmHg, MAP <70 mmHg,or a SBP drop >40 mmHg in adults) [ ] Hyperlactatemia (>3 mmol/l) [ ] Anion Gap (> 11mEG/l) [ ] Decreased capillary refill or mottling Organ dysfunction parameters [ ] Arterial hypoxemia (PaO2/FIO2 <300) [ ] Creatinine increase =0.5 mg/dl [ ] Acute oliguria (urine output <0.5 ml | kg |h or 45 mM/l for at least 2 hrs) [ ] Coagulation abnormalities (INR >1.5 or activated partial thromboplastin time >60 s) [ ] Ileus (absent dimple wel sounds) [ ] Thrombocytopenia (platelet count <100,000/l) [ ] Hyperbilirubinemia (plasma total bilirubin >4 mg/dl) According to the clinical indications above, can Bacteremia be further specified? If so, please indicate below and in your Progress Notes and/ or Discharge Summary. Indicate if the condition was present on admission. PHYSICIAN RESPONSE: [ x] Sepsis [ ] Severe Sepsis [ ] Septic Shock [ ] Septicemia [ ] Sepsis now resolved [ ] SIRS due to non-infectious cause with organ dysfunction [ ] SIRS due to non-infectious cause without organ dysfunction [ ] Other: [ ] Comment/Explanation: Present on Admission: [ ] Yes (Y) [ x] Clinically undeterminable (W) [ ] No (N) [ ] Ruled Out Please also document response in your Progress Notes and/or Discharge Summary and indicate if the condition was present on admission Notes: SIRS/ SIRS WITH ORGAN DYSFUNCTION Systemic inflammatory response syndrome (SIRS) generally refers to the systemic response to trauma/garcia or other insult such as Acute Myocardial Infarction, Acute Pancreatitis, and Major Surgery with symptoms including fever, tachycardia , tachypnea, and leukocytosis (1). BACTEREMIA Presence of viable bacteria in the circulating blood (2). This term is reserved for patients that do not manifest above SIRS response. SEPTICEMIA Generally refers to a systemic disease associated with the presence of pathological microorganisms or toxins in the blood, which can include bacteria, viruses, fungi or other organisms (1). SEPSIS Generally refers to SIRS due infection (1). SEVERE SEPSIS Generally refers to sepsis associated with acute organ dysfunction (1). SEPTIC SHOCK Generally refers to circulatory failure associated with severe sepsis (2), and defined as hypotension or hypoperfusion despite adequate fluid resuscitation (1 hour) (3). REFERENCES: 1. [employer]/Society of Critical Care Medicine Consensus Conference. Definitions for sepsis and organ failure and guidelines for the use of innovative therapies in sepsis. Critical Care Med 1992;20:864 - 74. 2. Efrain rayo MM, Chris LEWIS, Dioni BHAKTA, Bernard E, Tayo Galo, Francisco D, Idris J, Marblemount SM , Gary JL, Donato G; International Sepsis Definitions Conference. 2001 SCCM/ESICM/ACCP/ATS/SIS International Sepsis Definitions Conference. Intensive Care Med. 2002;29(4):530-8. Epub 2002Feb 19. Review. PubMed PMID:[id number] 3. ICD-9-CM Official Guidelines for Coding and Reporting 4. Medscape Drugs, Diseases and Procedures references 5. [employer]book [employer] Internal Medicine. 18th Edition MTDD
[2017-01-01] MEDS ORDERED: ROCEPHIN/NS 2 GM/100 ML 100 ML IV SCH (10:00)
[2017-01-01] MEDS: NEURONTIN PO SCH ×2 (11:34→21:10)
[2017-01-01] MEDS: GLUCOPHAGE PO SCH ×2 (11:35→21:52)
[2017-01-01] MEDS: celeXA PO SCH (11:35)
[2017-01-01] MEDS: ZESTRIL PO SCH (11:35)
--- NOTE | 2017-01-01 11:44 | Discharge Summary ---
Providers - Providers Date of Admission: 12/31/16 13:45 Date of discharge: 01/01/17 Attending physician: MILTON GARCIA MD 01/01/17 08:52 Consult to Case Management [CONS] Routine Services Needed at Discharge: Home Health Services Other Notified:: cm notified Comment:: iv antibiotics, wound care Additional Physician Instructions: ceftriaxone 2gm iv Q24H, end date 01/11/17 weekly labs: cbc, bmp, crp Primary care physician: MEDICAL EDUCATOR Hospitalization Condition: Stable Hospital course: 61 year old man with diabetes mellitus, hypertension, atopic dermatitis and sleep apnea. He has had multiple episodes of skin and soft tissue infection secondary to his skin condition that put him at risk for skin and soft tissue infection. He presented with worsening upper back abscess, s/p drainage by Dr. Raya. patient may be colonized with Staph aureus.Patient was treated with different antibiotics and ID is involved in the treatment of the patient. Per ID patient is going to be discharged with IV ceftriaxone for a total of 10 days. Disposition: DC/TX HOME UNDER HOME HEALTH Time spent for discharge: 31 minutes - Discharge Diagnoses (1) Abscess of back, except buttock Status: Acute (2) HTN (hypertension) Status: Chronic Qualifiers: Hypertension type: essential hypertension Qualified Code(s): I10 - Essential (primary) hypertension (3) IDDM (insulin dependent diabetes mellitus) Status: Chronic (4) CHELY on CPAP Status: Chronic Core Measure Documentation - Palliative Care Palliative Care/ Comfort Measures: Not Applicable - Core Measures Any of the following diagnoses?: none Exam - Physical Exam Narrative exam: Not in cardiopulmonary distress. The patient appeared well nourished and normally developed. Vital signs as documented. Head exam is unremarkable. No scleral icterus . Neck is without jugular venous distension, thyromegaly, or carotid bruits. Lungs are clear to auscultation. Cardiac exam reveals regular rate and Rhythm. First and second heart sounds normal. No murmurs, rubs or gallops. Abdominal exam reveals normal bowel sounds, no masses, no organomegaly and no aortic enlargement. Extremities are nonedematous and both femoral and pedal pulses are normal. 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 No focal weakness. - Constitutional Vitals: Temp Pulse Resp BP Pulse Ox 98.0 F 66 22 174/91 99 01/01/17 11:28 01/01/17 11:35 01/01/17 11:28 01/01/17 11:35 01/01/17 07:10 Plan Activity: advance as tolerated Weight Bearing Status: Full Weight Bearing Diet: low cholesterol, low salt, diabetic Follow up with: [facility] [Outside] - 2-3 Days PRIMARY CAREMD [Primary Care Provider] - 2-3 Days MACIE DELGADO MD [Staff Physician] - 14 Days Prescriptions: cefTRIAXone/NS 2 GM/100 ML [Rocephin/Ns 2 gm/100 ml] 2 gm IV Q24HR #10 piggyback
[2017-01-01] MEDS: ROCEPHIN/NS 2 GM/100 ML 2 GM/100 ML BAG IV SCH (12:50)
[2017-01-01] MEDS: PERCOCET 5/325 PO PRN ×2 (15:25→21:10)
[2017-01-01] MEDS: AMBIEN PO SCH (21:10)
[2017-01-01] MEDS ORDERED: APRESOLINE IV PRN (22:10)
[2017-01-01] MEDS: LEVEMIR SUB-Q SCH (23:05)
[2017-01-02] MEDS: MORPHINE IV PRN (05:00)
--- NOTE | 2017-01-02 07:46 | Event Note ---
Date: 01/01/17 Patient was admitted for abscess by the surgical team and medical team was consulted for the management. ID is involving in the management of the patient and arranged O/P IV antibiotics and I signed off the patient.
[2017-01-02 11:51] VITALS: BP 171/85
[2017-01-02] MEDS: NEURONTIN PO SCH (11:59)
[2017-01-02] MEDS: ZESTRIL PO SCH (12:00)
[2017-01-02] MEDS: GLUCOPHAGE PO SCH (12:00)
[2017-01-02] MEDS: celeXA PO SCH (12:00)
[2017-01-02] MEDS: ROCEPHIN/NS 2 GM/100 ML 2 GM/100 ML BAG IV SCH (12:56)
== END 2017-01-02 16:45 | disposition home health service (06) | DRG 602 ==
LOC: ED 15:39 → OR 21:42 → 2B-SURG 22:03 → OBSVTOIN 12-31 13:45
PROVIDERS: ADMIT Surgery; ATTEND Surgery
PROC: 0W9K0ZZ Drainage of Upper Back, Open Approach (ICD-10-PCS; principal; 2016-12-28)
PROC: 02HV33Z Insertion of Infusion Device into Superior Vena Cava, Percutaneous Approach (ICD-10-PCS; 2016-12-31)
DX: L02.212 Cutaneous abscess of back [any part, except buttock and flank] (principal); A41.9 Sepsis, unspecified organism; Z68.41 Body mass index [BMI] 40.0-44.9, adult; I10 Essential (primary) hypertension; E11.9 Type 2 diabetes mellitus without complications; J45.909 Unspecified asthma, uncomplicated; J44.9 Chronic obstructive pulmonary disease, unspecified; G47.33 Obstructive sleep apnea (adult) (pediatric); E78.5 Hyperlipidemia, unspecified; L20.9 Atopic dermatitis, unspecified; Z79.899 Other long term (current) drug therapy; Z88.8 Allergy status to other drugs, medicaments and biological substances; Z91.013 Allergy to seafood; Z98.890 Other specified postprocedural states; Z99.81 Dependence on supplemental oxygen; Z98.84 Bariatric surgery status; Z79.4 Long term (current) use of insulin; Z83.3 Family history of diabetes mellitus; Z82.49 Family history of ischemic heart disease and other diseases of the circulatory system
CPT/HCPCS: 36415; 71010; 72129; 80048; 80053; 82140; 82962; 85025; 85610; 85652; 86140; 86850; 86900; 86901; 87040; 87075; 87076; 87116; 87186; 94640; 94660; 96365; 96372; A9270-GY; G0378; J0330; J0360; J0696; J1170; J1200; J1815; J1818; J1885; J2270; J2405; J2543; J2704; J3010; J3370; J7030; J7040; Q9967

== ENCOUNTER 2017-01-14 08:38 | Outpatient (CLI) | payer MEDICARE ==
[2017-01-14] MEDS ORDERED: XYLOCAINE TOPICAL 4% TP ONE ×2 (08:46→11:11)
== END 2017-01-14 08:39 | disposition home or self-care (01) ==
LOC: WOUND 08:38
PROVIDERS: ATTEND Internal Medicine
DX: T81.89XD Other complications of procedures, not elsewhere classified, subsequent encounter (principal); E11.621 Type 2 diabetes mellitus with foot ulcer; L97.424 Non-pressure chronic ulcer of left heel and midfoot with necrosis of bone; L98.422 Non-pressure chronic ulcer of back with fat layer exposed; E11.620 Type 2 diabetes mellitus with diabetic dermatitis; E11.40 Type 2 diabetes mellitus with diabetic neuropathy, unspecified; E78.2 Mixed hyperlipidemia; E66.01 Morbid (severe) obesity due to excess calories; G47.33 Obstructive sleep apnea (adult) (pediatric); I10 Essential (primary) hypertension; Y83.8 Other surgical procedures as the cause of abnormal reaction of the patient, or of later complication, without mention of misadventure at the time of the procedure

== ENCOUNTER 2017-01-21 08:39 | Outpatient (CLI) | payer MEDICARE ==
[2017-01-21] MEDS ORDERED: XYLOCAINE TOPICAL 4% TP ONE ×2 (09:07→09:15)
== END 2017-01-21 08:40 | disposition home or self-care (01) ==
LOC: WOUND 08:39
PROVIDERS: ATTEND Internal Medicine
DX: T81.89XD Other complications of procedures, not elsewhere classified, subsequent encounter (principal); E11.622 Type 2 diabetes mellitus with other skin ulcer; L98.422 Non-pressure chronic ulcer of back with fat layer exposed; I10 Essential (primary) hypertension; E66.01 Morbid (severe) obesity due to excess calories; E78.2 Mixed hyperlipidemia; E11.40 Type 2 diabetes mellitus with diabetic neuropathy, unspecified; J45.909 Unspecified asthma, uncomplicated; F32.9 Major depressive disorder, single episode, unspecified; Z87.891 Personal history of nicotine dependence; Y83.8 Other surgical procedures as the cause of abnormal reaction of the patient, or of later complication, without mention of misadventure at the time of the procedure

== ENCOUNTER 2017-02-04 08:41 | Outpatient (CLI) | payer MEDICARE ==
[2017-02-04] MEDS ORDERED: XYLOCAINE TOPICAL 4% TP ONE ×2 (08:49→09:01)
== END 2017-02-04 08:42 | disposition home or self-care (01) ==
LOC: WOUND 08:41
PROVIDERS: ATTEND Internal Medicine
DX: T81.89XD Other complications of procedures, not elsewhere classified, subsequent encounter (principal); S31.000D Unspecified open wound of lower back and pelvis without penetration into retroperitoneum, subsequent encounter; E11.621 Type 2 diabetes mellitus with foot ulcer; L97.421 Non-pressure chronic ulcer of left heel and midfoot limited to breakdown of skin; L98.421 Non-pressure chronic ulcer of back limited to breakdown of skin; E78.2 Mixed hyperlipidemia; E66.01 Morbid (severe) obesity due to excess calories; G47.33 Obstructive sleep apnea (adult) (pediatric); I10 Essential (primary) hypertension; J45.909 Unspecified asthma, uncomplicated; F32.9 Major depressive disorder, single episode, unspecified; E11.40 Type 2 diabetes mellitus with diabetic neuropathy, unspecified; Y83.8 Other surgical procedures as the cause of abnormal reaction of the patient, or of later complication, without mention of misadventure at the time of the procedure

== ENCOUNTER 2017-02-11 08:37 | Outpatient (CLI) | payer MEDICARE ==
[2017-02-11] MEDS ORDERED: XYLOCAINE TOPICAL 4% TP ONE ×2 (09:27→12:00)
== END 2017-02-11 08:38 | disposition home or self-care (01) ==
LOC: WOUND 08:37
PROVIDERS: ATTEND Internal Medicine
DX: T81.31XD Disruption of external operation (surgical) wound, not elsewhere classified, subsequent encounter (principal); E11.621 Type 2 diabetes mellitus with foot ulcer; L97.424 Non-pressure chronic ulcer of left heel and midfoot with necrosis of bone; E11.622 Type 2 diabetes mellitus with other skin ulcer; L98.422 Non-pressure chronic ulcer of back with fat layer exposed; I10 Essential (primary) hypertension; E66.01 Morbid (severe) obesity due to excess calories; E78.2 Mixed hyperlipidemia; E11.40 Type 2 diabetes mellitus with diabetic neuropathy, unspecified; J45.909 Unspecified asthma, uncomplicated; F32.9 Major depressive disorder, single episode, unspecified; Z87.891 Personal history of nicotine dependence; Y83.8 Other surgical procedures as the cause of abnormal reaction of the patient, or of later complication, without mention of misadventure at the time of the procedure

== ENCOUNTER 2017-02-18 08:44 | Outpatient (CLI) | payer MEDICARE ==
[2017-02-18] MEDS ORDERED: XYLOCAINE TOPICAL 4% TP ONE (09:41)
== END 2017-02-18 08:45 | disposition home or self-care (01) ==
LOC: WOUND 08:44
PROVIDERS: ATTEND Internal Medicine
DX: T81.89XD Other complications of procedures, not elsewhere classified, subsequent encounter (principal); E11.621 Type 2 diabetes mellitus with foot ulcer; L97.424 Non-pressure chronic ulcer of left heel and midfoot with necrosis of bone; L97.422 Non-pressure chronic ulcer of left heel and midfoot with fat layer exposed; E11.40 Type 2 diabetes mellitus with diabetic neuropathy, unspecified; E66.01 Morbid (severe) obesity due to excess calories; E78.2 Mixed hyperlipidemia; G47.33 Obstructive sleep apnea (adult) (pediatric); I10 Essential (primary) hypertension; J45.909 Unspecified asthma, uncomplicated; F32.9 Major depressive disorder, single episode, unspecified; Z87.891 Personal history of nicotine dependence; Y83.8 Other surgical procedures as the cause of abnormal reaction of the patient, or of later complication, without mention of misadventure at the time of the procedure
CPT/HCPCS: 29581

== ENCOUNTER 2017-02-25 08:46 | Outpatient (CLI) | payer MEDICARE | END 2017-02-25 08:47 | disposition home or self-care (01) | LOC: WOUND 08:46 | PROVIDERS: ATTEND Internal Medicine | DX: T81.89XD Other complications of procedures, not elsewhere classified, subsequent encounter (principal); E11.621 Type 2 diabetes mellitus with foot ulcer; L97.424 Non-pressure chronic ulcer of left heel and midfoot with necrosis of bone; E11.622 Type 2 diabetes mellitus with other skin ulcer; L98.422 Non-pressure chronic ulcer of back with fat layer exposed; E11.40 Type 2 diabetes mellitus with diabetic neuropathy, unspecified; I10 Essential (primary) hypertension; E78.2 Mixed hyperlipidemia; E66.01 Morbid (severe) obesity due to excess calories; J45.909 Unspecified asthma, uncomplicated; F32.9 Major depressive disorder, single episode, unspecified; Z87.891 Personal history of nicotine dependence; Y83.8 Other surgical procedures as the cause of abnormal reaction of the patient, or of later complication, without mention of misadventure at the time of the procedure ==

== ENCOUNTER 2017-03-11 08:46 | Outpatient (CLI) | payer MEDICARE | END 2017-03-11 08:47 | disposition home or self-care (01) | LOC: WOUND 08:46 | PROVIDERS: ATTEND Internal Medicine | DX: E11.621 Type 2 diabetes mellitus with foot ulcer (principal); E11.622 Type 2 diabetes mellitus with other skin ulcer; L97.424 Non-pressure chronic ulcer of left heel and midfoot with necrosis of bone; L98.422 Non-pressure chronic ulcer of back with fat layer exposed; E66.01 Morbid (severe) obesity due to excess calories; I10 Essential (primary) hypertension; E08.8 Diabetes mellitus due to underlying condition with unspecified complications; G47.33 Obstructive sleep apnea (adult) (pediatric); E78.2 Mixed hyperlipidemia; J45.909 Unspecified asthma, uncomplicated; F32.89 Other specified depressive episodes; E66.9 Obesity, unspecified; E11.40 Type 2 diabetes mellitus with diabetic neuropathy, unspecified; Z87.891 Personal history of nicotine dependence | CPT/HCPCS: 99212; G0463 ==

== ENCOUNTER 2018-09-17 09:41 | Emergency (ER) | payer MEDICARE ==
[2018-09-17 09:48] VITALS: BP 128/74
[2018-09-17] MEDS ORDERED: DECADRON IM ONE (10:02)
--- NOTE | 2018-09-17 10:02 | Emergency Department Report ---
ED Rash HPI - HPI Chief Complaint: Allergic Reaction Stated Complaint: SEVERE RASH Time Seen by Provider: 09/17/18 09:55 Duration: patient has a chronic history of atopic dermatitis. 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 Location: Other (diffuse') Rash Symptoms: Yes Itching, Yes Breathing Difficulties (pt has COPD and is on O2 at baseline), No Facial Swelling, No Tongue/Oral Swelling, No Choking Sensation, No Wheezing/Dyspnea, No Peeling, No Blistering, No Fever, No Malaise , No Myalgias Severity: moderate ED Review of Systems ROS: Stated complaint: SEVERE RASH Other details as noted in HPI Comment: All other systems reviewed and negative ED Past Medical Hx - Past Medical History Hx Hypertension: Yes (40+YRS) Hx Diabetes: Yes Hx Deep Vein Thrombosis: Yes Hx Asthma: Yes (20 YOA) Hx HIV: No Additional medical history: Atopic Dermatitis, home oxygen - Surgical History Past Surgical History?: Yes Hx Pacemaker: No Hx Internal Defibrillator: No Additional Surgical History: gastrobypass / removal of abscess / removal of adhesions - Social History Smoking Status: Never Smoker Substance Use Type: None - Medications Home Medications: Home Medications Medication Instructions Recorded Confirmed Last Taken Type ALBUTEROL Inhaler (OR & NICU) 2 puff IH QID PRN 07/12/15 07/14/15 07/14/15 History [ProAir HFA Inhaler] AtorvaSTATin [Lipitor] 1 tab PO DAILY 07/12/15 07/14/15 10/24/16 History Citalopram [Celexa] 20 mg PO QDAY 07/12/15 07/14/15 10/24/16 History Fluticasone/Salmeterol [Advair 1 puff IH BID 07/12/15 07/14/15 07/13/15 History Diskus 100-50 mcg] Gabapentin [Neurontin] 300 mg PO BID 07/12/15 10/25/16 10/24/16 History Insulin Glargine,Hum.rec.anlog 40 units SQ QHS 07/12/15 07/14/15 10/24/16 History [Lantus Solostar] Lisinopril [Zestril TAB] 20 mg PO QDAY 07/12/15 07/14/15 10/24/16 History Piroxicam 1 cap PO DAILY 07/12/15 10/25/16 07/13/15 History Zolpidem [Ambien] 10 mg PO QHS 07/12/15 07/14/15 10/24/16 History glipiZIDE [Glucotrol] 5 mg PO QDAY 07/12/15 07/14/15 10/24/16 History metFORMIN [Glucophage] 850 mg PO BID 07/12/15 07/14/15 10/24/16 History Ketoconazole (Nf) [Ketoconazole 120 ml TP 2XW #1 bottle 03/29/16 Unknown Rx Shampoo (Nf)] Prednisone [predniSONE 10 mg 10 mg PO .TAPER #1 tab.ds.pk 10/25/16 Unknown Rx (6-Day Pack, 21 Tabs)] diphenhydrAMINE [Benadryl CAP] 50 mg PO Q8HR PRN #15 capsule 10/25/16 Unknown Rx Acetaminophen/Codeine [Tylenol 1 tab PO Q6H PRN #14 tab 12/06/16 Unknown Rx /Codeine # 3 tab] Cephalexin [Keflex] 500 mg PO QID #20 capsule 12/06/16 Unknown Rx cefTRIAXone/NS 2 GM/100 ML 2 gm IV Q24HR #10 piggyback 01/01/17 Unknown Rx [Rocephin/Ns 2 gm/100 ml] Triamcinolone 0.1% [Kenalog 0.1% 1 applic TP TID #30 g 09/17/18 Unknown Rx CREAM] predniSONE [Deltasone] 20 mg PO QDAY #5 tab 09/17/18 Unknown Rx Rash Exam - Exam General: Vital signs noted. No distress. Alert and acting appropriately. HEENT: No Periorbital Edema, No Conjuctival Injection, No Chemosis, No Perioral Edema, No Tongue Edema, No Uvular Edema, No Compromised Airway, No Drooling Lungs: Yes Good Air Exchange (Normal Breath Sounds), No Wheezes, No Ronchi, No Stridor, No Cough, No Labored Respirations, No Retractions, No Use of Accessory Muscles, No Other Abnormal Lung Sounds Heart: Yes Regular, No Murmur Skin: Yes Maculopapular Rash (diffusly, dry scaly skin), No Tenderness, No Erythema, No Edema, No Encrustations Other: Positive: Abdomen Normal, Neurologic Normal, Musculoskeletal Normal ED Course Vital Signs 09/17/18 09/17/18 09:45 09:52 Temperature 98.4 F Pulse Rate 107 H Respiratory 20 16 Rate Blood Pressure 128/74 O2 Sat by Pulse 98 Oximetry ED Medical Decision Making - Medical Decision Making Patient given a shot of Decadron here in the emergency department and will be given Medrol Dosepak as well as triamcinolone. Patient is to continue with the Benadryl these been taking. Critical care attestation.: If time is entered above; I have spent that time in minutes in the direct care of this critically ill patient, excluding procedure time. ED Disposition Clinical Impression: Dermatitis Disposition: DC-01 TO HOME OR SELFCARE Is pt being admited?: No Does the pt Need Aspirin: No Condition: Stable Instructions: Acute Rash (ED) Referrals: PRIMARY CARE, [Primary Care Provider] - 3-5 Days Time of Disposition: 10:02
== END 2018-09-17 10:13 | disposition home or self-care (01) ==
LOC: ED 09:41
DX: L30.9 Dermatitis, unspecified (principal); I10 Essential (primary) hypertension; E11.9 Type 2 diabetes mellitus without complications; J45.909 Unspecified asthma, uncomplicated; Z86.718 Personal history of other venous thrombosis and embolism; Z79.899 Other long term (current) drug therapy; Z88.8 Allergy status to other drugs, medicaments and biological substances; Z91.013 Allergy to seafood
CPT/HCPCS: 96372; 99282; J1100

== ENCOUNTER 2019-03-20 13:23 | Outpatient (CLI) | payer MEDICARE ==
[2019-03-20 14:22] LABS: Hematocrit 41.6 % (35.5-45.6); Hemoglobin 13.9 gm/dl (11.8-15.2); Mean Corpuscular HGB Conc 33 % (32-34); Mean Corpuscular Volume 91 fl (84-94); Platelet Count 276 K/mm3 (140-440); Red Blood Count 4.55 M/mm3 (3.65-5.03); Red Cell Distribution Width 13.5 % (13.2-15.2)
[2019-03-20 14:42] LABS: Alanine Aminotransferase 64 units/L (7-56); Albumin 4.2 g/dL (3.9-5); BUN/Creatinine Ratio 12; Blood Urea Nitrogen 11 mg/dL (9-20); Calcium 9.6 mg/dL (8.4-10.2); Chol/HDL Ratio 3.36 %; HDL Cholesterol 33 mg/dL (40-59); Hemolysis Index 5; LDL Cholesterol,Direct 71 mg/dL (50-130)
--- NOTE | 2019-03-20 15:19 | XRay Report ---
CHEST 2 VIEWS INDICATION: Sleep apnea. COMPARISON: 12/31/2016. FINDINGS: PA and lateral chest radiographs demonstrate now normal cardiomediastinal silhouette. Clear lungs. Intact bones. Interval left upper extremity PICC removal. CONCLUSION: No acute disease in the chest. Thank you for the opportunity to participate in this patient's care.
== END 2019-03-20 13:24 | disposition home or self-care (01) ==
LOC: XRAY 13:23
PROVIDERS: ATTEND Internal Medicine
DX: J45.909 Unspecified asthma, uncomplicated (principal); G47.30 Sleep apnea, unspecified; E78.00 Pure hypercholesterolemia, unspecified; I10 Essential (primary) hypertension; E11.9 Type 2 diabetes mellitus without complications
CPT/HCPCS: 36415; 71046; 80053; 80061; 82785; 82803; 84436; 84443; 85027

== ENCOUNTER 2019-03-27 14:13 | Emergency (ER) | payer MEDICARE ==
[2019-03-27 14:38] VITALS: BP 167/82
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
--- NOTE | 2019-03-27 15:09 | XRay Report ---
CHEST 2 VIEWS INDICATION: Chest trauma, fall. COMPARISON: 03/20/2019 FINDINGS: PA and lateral chest radiographs again demonstrate normal cardiomediastinal silhouette. Clear lungs. Right hemidiaphragm again slightly eventrated anteriorly. Multilevel mid to lower thoracic spine degenerative spurring. Few upper abdominal postsurgical changes. CONCLUSION: No acute chest process or significant interval change, as described. Thank you for the opportunity to participate in this patient's care.
--- NOTE | 2019-03-27 17:01 | Emergency Department Report ---
HPI - General Chief Complaint: Fall Time Seen by Provider: 03/27/19 16:06 - HPI HPI: 62-year-old male presents to the status post fall 2 days ago. States he had a ground-level fall and hit the ngoc. Patient states that he had no loss of consciousness after falling. Patient was able to get up after incident. Patient states that he felt fine but was told by his to come to be evaluated. Patient does admit some right leg thigh pain as well as some right upper shoulder chest pain. He denies fevers/chills/nausea vomiting/abdominal pain chest pain shortness of breath ED Past Medical Hx - Past Medical History Previous Medical History?: Yes Hx Hypertension: Yes Hx Diabetes: Yes Hx Deep Vein Thrombosis: Yes Hx Arthritis: Yes Hx Asthma: Yes Hx HIV: No Additional medical history: Atopic Dermatitis, home oxygen - Surgical History Past Surgical History?: Yes Hx Pacemaker: No Hx Internal Defibrillator: No Additional Surgical History: gastrobypass / removal of abscess / removal of adhesions - Social History Smoking Status: Never Smoker Substance Use Type: None - Medications Home Medications: Home Medications Medication Instructions Recorded Confirmed Last Taken Type ALBUTEROL Inhaler (OR & NICU) 2 puff IH QID PRN 07/12/15 07/14/15 07/14/15 History [ProAir HFA Inhaler] AtorvaSTATin [Lipitor] 1 tab PO DAILY 07/12/15 07/14/15 10/24/16 History Citalopram [Celexa] 20 mg PO QDAY 07/12/15 07/14/15 10/24/16 History Fluticasone/Salmeterol [Advair 1 puff IH BID 07/12/15 07/14/15 07/13/15 History Diskus 100-50 mcg] Gabapentin [Neurontin] 300 mg PO BID 07/12/15 10/25/16 10/24/16 History Insulin Glargine,Hum.rec.anlog 40 units SQ QHS 07/12/15 07/14/15 10/24/16 History [Lantus Solostar] Lisinopril [Zestril TAB] 20 mg PO QDAY 07/12/15 07/14/15 10/24/16 History Piroxicam 1 cap PO DAILY 07/12/15 10/25/16 07/13/15 History Zolpidem [Ambien] 10 mg PO QHS 07/12/15 07/14/15 10/24/16 History glipiZIDE [Glucotrol] 5 mg PO QDAY 07/12/15 07/14/15 10/24/16 History metFORMIN [Glucophage] 850 mg PO BID 07/12/15 07/14/15 10/24/16 History Ketoconazole (Nf) [Ketoconazole 120 ml TP 2XW #1 bottle 03/29/16 Unknown Rx Shampoo (Nf)] Prednisone [predniSONE 10 mg 10 mg PO .TAPER #1 tab.ds.pk 10/25/16 Unknown Rx (6-Day Pack, 21 Tabs)] diphenhydrAMINE [Benadryl CAP] 50 mg PO Q8HR PRN #15 capsule 10/25/16 Unknown Rx Acetaminophen/Codeine [Tylenol 1 tab PO Q6H PRN #14 tab 12/06/16 Unknown Rx /Codeine # 3 tab] Cephalexin [Keflex] 500 mg PO QID #20 capsule 12/06/16 Unknown Rx cefTRIAXone/NS 2 GM/100 ML 2 gm IV Q24HR #10 piggyback 01/01/17 Unknown Rx [Rocephin/Ns 2 gm/100 ml] Triamcinolone 0.1% [Kenalog 0.1% 1 applic TP TID #30 g 09/17/18 Unknown Rx CREAM] predniSONE [Deltasone] 20 mg PO QDAY #5 tab 09/17/18 Unknown Rx ED Review of Systems ROS: Stated complaint: CHEST/RT LEG PAIN Other details as noted in HPI Comment: All other systems reviewed and negative Physical Exam - Physical Exam Vital Signs: Vital Signs 03/27/19 14:34 Temperature 98.4 F Pulse Rate 94 H Respiratory 22 Rate Blood Pressure 167/82 O2 Sat by Pulse 97 Oximetry Physical Exam: GENERAL: Alert and oriented x3, no apparent distress, Normal Gait to walker, atraumatic. HEAD: Head is normocephalic and a-traumatic. NECK: Supple. Non edematous, No lymphadenopathy or thyromegaly. No C-spine tenderness, full range of motion LUNGS: Symetrical with respiration, No wheezing, no rales or crackles, CTAB. HEART: S1, S2 present, regular rate and rhythm without murmur, no rubs, no gallops. Non tender to palpation BACK: Full range of motion, no spinal tenderness, Tenderness to palpation of the trapezius muscles and latissimus dorsi muscles of the back EXTREMITIES/MUSCULOSKELETAL: No cyanosis, clubbing, rash, lesions or edema. Full ROM bilaterally. UE/LE Pulses 2+ bilaterally. LE and UE 5+ strength bilaterally, small 4-5 cm contusion observed right lateral thigh NEUROLOGIC: The patient is cooperative with no focal neurologic deficits. SKIN: Warm and dry, No lesions, No ulceration or induration present. ED Course Vital Signs 03/27/19 14:34 Temperature 98.4 F Pulse Rate 94 H Respiratory 22 Rate Blood Pressure 167/82 O2 Sat by Pulse 97 Oximetry ED Medical Decision Making - Radiology Data Radiology results: report reviewed, image reviewed No acute process. - Medical Decision Making 63-year-old male presents with contusion and myalgia pain from fall 2 days ago. Vital signs are normal patient is in no acute distress. Discussed with patient follow-up with primary care physician. She states that he takes Vicodin for his knee chronic pain and does not need pa in medications. Discussed heat therapy 3 times a day. Discussed the patient and take medications as prescribed. Patient has no neurological deficit. Patient is alert and oriented 3 and understands all instructions given. Critical care attestation.: If time is entered above; I have spent that time in minutes in the direct care of this critically ill patient, excluding procedure time. ED Disposition Clinical Impression: Fall, Contusion of leg, right Disposition: DC-01 TO HOME OR SELFCARE Is pt being admited?: No Does the pt Need Aspirin: No Condition: Stable Instructions: Contusion in Adults (ED), Musculoskeletal Pain (ED), Trigger Point Pain (ED), Heat Pack Application (ED) Additional Instructions: Make sure to follow up with the primary care physician as discussed. Take all your medications as you've been prescribed. If you have any worsening symptoms or develop new symptoms please return to ED immediately. Referrals: KESHIA MEHTA MD [Referring] - 3-5 Days DARIA MAI MD [Staff Physician] - 3-5 Days Forms: Accompanied Note, Work/School Release Form(ED) Time of Disposition: 17:02
== END 2019-03-27 17:04 | disposition home or self-care (01) ==
LOC: ED 14:13
DX: S70.11XA Contusion of right thigh, initial encounter (principal); I10 Essential (primary) hypertension; E11.9 Type 2 diabetes mellitus without complications; M19.90 Unspecified osteoarthritis, unspecified site; J45.909 Unspecified asthma, uncomplicated; M79.10 Myalgia, unspecified site; Z86.718 Personal history of other venous thrombosis and embolism; Z79.4 Long term (current) use of insulin; Z91.013 Allergy to seafood; Z88.8 Allergy status to other drugs, medicaments and biological substances; W01.198A Fall on same level from slipping, tripping and stumbling with subsequent striking against other object, initial encounter; Y93.89 Activity, other specified; Y92.89 Other specified places as the place of occurrence of the external cause; Y99.8 Other external cause status
CPT/HCPCS: 71046; 99283

== ENCOUNTER 2020-01-18 21:52 | Emergency (ER) | payer OTHER, MEDICARE, MEDICAID ==
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
[2020-01-19 02:53] VITALS: BP 164/79
== END 2020-01-19 02:50 | disposition home or self-care (01) ==
LOC: ED 21:52
DX: S16.1XXA Strain of muscle, fascia and tendon at neck level, initial encounter (principal); S20.211A Contusion of right front wall of thorax, initial encounter; S80.01XA Contusion of right knee, initial encounter; Z91.013 Allergy to seafood; Z88.8 Allergy status to other drugs, medicaments and biological substances; I10 Essential (primary) hypertension; E11.9 Type 2 diabetes mellitus without complications; J45.909 Unspecified asthma, uncomplicated; M19.90 Unspecified osteoarthritis, unspecified site; Z79.899 Other long term (current) drug therapy; V89.2XXA Person injured in unspecified motor-vehicle accident, traffic, initial encounter; Y93.89 Activity, other specified; Y92.410 Unspecified street and highway as the place of occurrence of the external cause; Y99.8 Other external cause status
CPT/HCPCS: 99281